=== PATIENT | female | born 1995 | race Caucasian/White ===

== ENCOUNTER 2023-08-02 13:52 | Inpatient (IN) | payer OTHER, SELFPAY ==
[2023-08-02] VITALS (29 sets, daily range): BP systolic 77–116; BP diastolic 42–74; BMI 24.0
[2023-08-02 09:54] LABS: % Basophils 0.7 % (0-2); % Eosinophils 0.8 % (0-6); % Immature Granulocytes 0.3 % (0-0.5); % Lymphocytes 13.3 % (20.5-51.1); % Monocytes 6.9 % (1.7-9.3); Absolute Basophils 0.1 10^3/uL (0-0.2); Absolute Eosinophils 0.1 10^3/uL (0-0.7); Absolute Monocytes 0.5 10^3/uL (0.1-0.6); Absolute Neutrophils 5.8 10^3/uL (1.4-6.5); Hemoglobin 13.9 g/dL (12.0-16.0); Mean Corp Hgb Conc. 35.6 g/dL (33.0-37.0); Mean Corpuscular Hgb 31.8 pg (27.0-31.0); Mean Corpuscular Volume 89.2 fL (81.0-99.0); Mean Platelet Volume 12.3 fL (7.4-10.4); Nucleated Red Blood Cells % 0 %; Platelet Count 207 10^3/uL (130-400); Red Blood Cell Count 4.37 10^6/uL (4.20-5.40); Red Cell Dist. Width 12.9 % (11.5-14.5); White Blood Cell Count 7.4 10^3/uL (4.8-10.8)
--- NOTE | 2023-08-02 10:28 | ED.GENMED ---
History of Present Illness
General
Chief Complaint: Seizure
Source: patient and family
Exam Limitations: other (Downs Syndrome)
Time Seen by Provider: 08/02/23 08:44
Travel History
Have you had any contact with someone who has COVID-19?: No
Do you have any symptoms of coronavirus? Fever > 100 degrees, chills, cough, shortness of breath, sore throat, loss of taste or smell, muscle aches, or headache?: No
History of Present Illness
History of Present Illness:
28-year-old female with history of Down syndrome, pseudoseizures, tetralogy of Fallot, AL L in remission who presents with family was concerned about increasing events of pseudoseizures. Parent states that in the past she was diagnosed with
pseudoseizure after having an EEG that was unremarkable. For some time she has been doing well but over the last week has had increasing events. The patient has had several events in the evenings. Family states she is fatigued afterwards and
sometimes the next day very tired. They also feel like she has just been more weak over the last week due to these events. Her doctor started her on daily clonazepam and again she has been treated with medications for pseudoseizures. Family
presents a video that shows right eye deviation with facial twitching that does appear to be a seizure.
Past History
Past History
ED Past Medical History: Other (Tetralogy of Fallot, 'pseudoseizure', Down syndrome, AL L)
ED Past Surgical History: Cardiac (Tetralogy of Fallot repair)
Phy Exam
Physical Exam
Physical Exam:
CONSTITUTIONAL Patient alert and oriented to person. Well-appearing. Vital signs reviewed.
HEAD atraumatic, normocephalic.
EYES eyelids normal to inspection, Pupils equally round and reactive to light, Extraocular muscles intact, Conjunctiva normal, Sclera normal.
NECK normal range of motion, Trachea midline, no jugular venous distention.
RESPIRATORY CHEST No respiratory distress noted, Chest expansion equal, Bilateral breath sounds clear.
CARDIOVASCULAR regular rate and rhythm, loud systolic murmur noted.
UPPER EXTREMITY range of motion normal, no cyanosis, no edema.
LOWER EXTREMITY range of motion normal, no cyanosis, no edema.
NEURO Speech normal,Cranial Nerves intact to screening exam. Question very slight left-sided weakness when compared to the right. Is able to hold all 4 extremities against gravity.
SKIN skin warm, dry, and normal in color.
Course
Orders/Labs/Results
Orders:
Orders
08/02/23 09:42
Complete Blood Count/With Diff Urgent
08/02/23 10:16
Comprehensive Metabolic Panel Urgent
Creatine Phosphokinase Urgent
08/02/23 10:20
Lacosamide [Vimpat] 400 mg IV NOW STA
Lorazepam [Ativan] 1 mg IV NOW ONE
08/02/23 10:28
0.9% Sodium Chloride [Nss (Preservative Free)] 0.5 ml IV NOW STA
08/02/23 11:00
Flush (0.9% Sodium Chloride) [Flush (Nss)] See Dose Instructions IV PER PROTOCOL
08/02/23 20:00
Lacosamide [Vimpat] 100 mg IV Q12H
Abnormal Lab Results
08/02/23
09:42
MCH 31.8 H pg
(27.0-31.0)
MPV 12.3 H fL
(7.4-10.4)
Absolute Lymphs (auto) 1.0 L 10^3/uL
(1.2-3.4)
Neutrophils % 78.0 H %
(42.2-75.2)
Lymphocytes % 13.3 L %
(20.5-51.1)
08/02/23 09:42
Vital Signs
Initial and Last Documented VS:
Initial Vital Signs
Temp Pulse Resp BP Pulse Ox
98.0 F 101 16 100/59 98
08/02/23 08:36 08/02/23 08:36 08/02/23 08:36 08/02/23 08:36 08/02/23 08:36
Last Documented Vital Signs
Temp Pulse Resp BP Pulse Ox
98.0 F 105 25 111/56 100
08/02/23 08:36 08/02/23 09:45 08/02/23 09:45 08/02/23 09:30 08/02/23 09:45
MDM/Problems Addressed
MDM/Problems Addressed:
Seizures, chronic Down syndrome, chronic congenital heart defect (repaired), history of AL L with whole body radiation
*Pulse Oximetry
Patient hypoxic: no
*Guitar Teacher Interpretation
Rate: tachycardiac
Interpretation: normal
Rhythm: sinus
*Critical Care Note
Total Time (30-74mins, 75-104mins- exclusive of procedures): 30 minutes
Data Reviewed
Source: patient and family
Prescriptions/Medications Considered But Not Given:
Consider Keppra but neurology to treat with antiepileptics
Patient Management
Discussion with other providers: Hospitalist and Coater (Case discussed with neurology)
Escalation/DeEscalation of care consider admission/obs:
Patient has been diagnosed with pseudoseizures. However video of the events an event here in the emergency department are consistent with seizures. Seen by neurology at bedside who was able to witness the event. Ativan and Vimpat were ordered by
neurology. Neurology recommends admission.
ED Attending Note
-
Portions of this chart may have been created with voice recognition software.� Occasional wrong word or��sound alike� substitutions may have occurred due to the inherent limitations of voice recognition software.
Discharge Plan
Departure
Patient Disposition: Admit
Date of Disposition: 08/02/23
Time of Disposition: 10:29
Admit to: Telemetry
Presentation/result/management discussed w/ accepting MD/DO: Hospitalist
Discharge Problem:
Seizure, Down syndrome
Prescriptions:
No Action
clonazepam 0.5 mg Tablet
0.5 mg PO DAILY
levothyroxine 75 mcg Tablet
75 mcg PO DAILY
lisinopril 10 mg Tablet
10 mg PO DAILY
CombiPatch 0.05-0.14 mg/24 hr Patch Semiweekly
1 patch TRANSDERMAL ONCE
buspirone 15 mg Tablet
15 mg PO BID
aripiprazole 2 mg Tablet
4 mg PO DAILY
Interventions
Interventions:
*Risk Screen - Suicide Last Done: 08/02/23 08:55
*General Assessment Last Done: 08/02/23 08:55
*Neglect/Abuse Screening Last Done: 08/02/23 08:55
ED- Fall Risk Assessment Last Done: 08/02/23 09:37
*ED COVID-19 Vaccine History Last Done: 08/02/23 08:36
ED- Cardiac Assessment Last Done: 08/02/23 09:37
ED- Neurological Assessment Last Done: 08/02/23 09:37
ED- Pulmonary Assessment Last Done: 08/02/23 09:37
Discharge Date and Time
Print Language: GREENLANDIC
[2023-08-02] MEDS: NSS (PRESERVATIVE FREE) 0.5 ML IV (10:32)
[2023-08-02] MEDS: ATIVAN 1 MG IV (10:32)
[2023-08-02] MEDS: VIMPAT 400 MG IV (10:57)
[2023-08-02 11:38] LABS: ALT (SGPT) 48 U/L (0-35); AST (SGOT) 83 U/L (14-36); Albumin 5.2 g/dl (3.5-5.0); Alkaline Phosphatase 90 U/L (38-126); Blood Urea Nitrogen 14 mg/dl (7-17); Calcium 10.4 mg/dl (8.4-10.2); Carbon Dioxide 19 mmol/L (22-30); Chloride 107 mmol/L (98-107); Creatine Phosphokinase 740 U/L (30-135); Estimated Creatinine Clearance 68 ml/min; Glucose 93 mg/dl (70-99); Potassium 4.2 mmol/L (3.5-5.1); Sodium 142 mmol/L (135-145); Total Protein 9.1 g/dl (6.3-8.2); eGFR > 60.00
--- NOTE | 2023-08-02 12:39 | HPS.HSE ---
Family Physician
-
Family Physician: David Vann
Chief Complaint
-
seizure
History of Present Illness
Ms. Gabriela Small is a 28 yo woman with hx Down Syndrome, pseudoseizures, Tetralogy of Fallot s/p repair, AL in remission who presents to the ER with witnessed seizure at home.
Patient sedated on exam, given ativan in ER.
History obtained from father at bedside. Patient has a history of diagnosed pseudoseizures that were short lasting with quick recovery. Over past week increased seizure activity at home with prolonged weakness following.
No fevers/chills. No vomiting. No complaint of new pains. No rash or LE swelling.
Medical History
Past Medical History
Past Medical History: Reports Other ( Down Syndrome, pseudoseizures, Tetralogy of Fallot s/p repair, AL in remission)
Past Surgical History: Reports Cardiac and Other
Social History
Alcohol: None
Drug: None
Family History
Family History: Not pertinent
Allergies / Home Medications
Allergies reflects when Allergies were last updated in [employer].
Home Medications with original date entered in [employer]
Allergy/Medication List:
Allergies
Allergy/AdvReac Type Severity Reaction Status Date / Time
lactose Allergy Nausea / Verified 08/02/23 08:39
Vomiting
scopolamine Allergy Unknown Verified 08/02/23 08:39
seafood Allergy Unknown Uncoded 08/02/23 08:39
Home Medications
L.acidophilus,rhamnosus-B.breve-S.thermophilus 3 billion cell chew tab 1 tab PO NOON 08/02/23
acetaminophen 325 mg/10.15 mL oral solution 0 mg PO Q4HPRN PRN mild pain 08/02/23
aripiprazole 2 mg tablet 4 mg PO QPM 08/02/23
buspirone 15 mg tablet 15 mg PO BID 08/02/23
clonazepam 0.5 mg tablet 0.5 mg PO HS 08/02/23
estradiol 0.05 mg-norethindrone 0.14 mg/24 hr semiwkly transderm patch (CombiPatch) 1 patch transdermal TUFR 08/02/23
levothyroxine 75 mcg tablet 75 mcg PO DAILY 08/02/23
lisinopril 10 mg tablet 10 mg PO QPM 08/02/23
pediatric multivitamin no.49 (Flintstones Gummies chewable tablet) 1 tab PO BID@1200,1700 08/02/23
Review of Systems
-
History Source: Patient
A 12 point ROS was completed and negative except as noted: Yes
Physical Exam
Vital Signs
Vital Signs
Temp Pulse Resp BP Pulse Ox
98.0 F 105 25 111/56 100
08/02/23 08:36 08/02/23 09:45 08/02/23 09:45 08/02/23 09:30 08/02/23 09:45
Physical Exam
General: Other (sedated s/p ativan )
HEENT: PERRLA
Respiratory: Other (referred upper airway noises)
Cardiac: S1/S2 and Regular Rhythm
GI: Soft and Non Tender
Musculoskeletal: No Edema
Skin: Warm and Dry; No Rash
Neuro: Sedated
Psych: Calm
Laboratory Results
-
08/02/23 09:42
08/02/23 10:53
Laboratory Results
Total Bilirubin 1.0 mg/dl (0.2-1.3) 08/02/23 10:53
AST 83 U/L (14-36) H 08/02/23 10:53
ALT 48 U/L (0-35) H 08/02/23 10:53
Alkaline Phosphatase 90 U/L (38-126) 08/02/23 10:53
Data Reviewed
-
Diagnostic Radiology: Report Reviewed by me
Lab Data: Labs Reviewed by me
Impression/Plan
-
Ms. Gabriela Small is a 28 yo woman with hx Down Syndrome, pseudoseizures, Tetralogy of Fallot s/p repair, AL in remission who presents to the ER with witnessed seizure at home.
Triage VS: T 98, P 101, RR 16, BP 100/59, SpO2 98%
LABS: WBC 7.4, Hg 13.9, PLT 207, Na 142, K+ 4.2, CO2 19, BUN 14, Cr 0.8, Glucose 93, Ca 10.4, AST 83, ALT 48, CK 740
In the ER patient was given IV Lorazepam and Vimpat
Seizure
-family hesitant on head CT given radiation exposure (and had a lot of radiation in treatment for AL).
-will see if MRI can be done now while very sedated post ativan. spoke to MRI team and will try
-admit to IMU
-seizure precautions
-continue IV Vimpact started by Dr. Du
-appreciate neurology consult
Hypotension
-post ativan/sedation
-1L IVF now
-maintenance IVF
Hs Pseudoseizures
Down Syndrome
Tetralogy of Fallot s/p Repair
Anxiety
-METAL BONDER Aripiprazole, Buspirone, Clonazepam to start tomorrow evening (hold for sedation)
Essential Hypertension
-hold METAL BONDER Lisinopril
Hypothyroidism - METAL BONDER synthroid
DVT PPx SCD
FULL ISAAC
76 minutes spent on patient evaluation, medical decision making, coordination of care
[2023-08-02] MEDS: NSS 500 IV (13:14)
--- NOTE | 2023-08-02 13:16 | CON.NEURO4 ---
Consultation - Neurology 4
-
CONSULTING PHYSICIAN: Asaf Du
REFERRING PHYSICIAN: ER
DICTATED BY: Asaf Du
DATE/TIME OF REQUEST: 08/02/23
DATE/TIME OF CONSULTATION: 08/02/23
Reason for Consultation: Suspicion for epileptic seizures
History of Present Illness:
The patient is a 28-year-old woman with a past ministry of Down syndrome, tetralogy of Fallot status postrepair, AL L presented to hospital because of increasing frequency of abnormal movements concerning for epileptic versus psychogenic seizure.
Patient reports that these episodes have been happening much more frequently since approximately last 07/24. She could have multiple episodes and these were generally at night but in the past couple of days these have been happening during
the day as well. Previous to this the patient has not had any abnormal spells in several months since she had received a diagnosis of psychogenic nonepileptic seizures in the past having had a EEG in the past that was normal.
She had an event that seems similar to the ones at home happening after IVs placed, parents feel that some of these events can be brought on by stressors.
She does see a psychiatrist and had been started on a low-dose alprazolam 0.5 mg recently. Sees a neurologist generally once a year. Patient with no recent heart issues.
Parents have seen that she has not been eating as much recently and seems to have a generalized weakness.
Patient's mother demonstrated a video to me where he she had obvious epileptic seizure activity with right eye and head deviation along with tonic extension of the right arm. She showed another separate video with bilateral tonic extension loss of
consciousness and eyes open consistent with a generalized epileptic seizure.
Patient had a spontaneous occurrence of epileptic seizure in front of me while in the room beginning with right eye and head deviation with small amount of right arm clonic movements within secondary generalization and then spontaneous stopping
after approximately 2 minutes total of seizure activity.
Past Medical History: Down syndrome, non epileptic psychogenic seizures, ALL, tetralogy of Fallot
Surgical History: Repair of tetralogy of Fallot
Family History: Non-contributory
Social History: Lives with parents
Review of Symptoms:
Patient denies any fever, headache, chest pain, shortness of breath, GI or symptoms.
Physical Exam:
Middle-aged young woman with Down syndrome in no distress pleasant awake and alert and interactive. No signs of head or neck trauma no obvious tongue bleeding eyes are clear, heart rate regular breathing unlabored abdomen is obese soft nontender no
lower extremity edema seen.
Neurologic Examination:
Patient is awake and alert and interactive, . she does interact with the examiner and will obey simple commands, tracks the examiner through the room.
Cranial nerves shows symmetric face and no dysarthria pupils are 3 mm equal round react to light bilaterally, extraocular movements are full, no ptosis, tongue is midline, smile symmetric
Motor examination shows generalized weakness 4/5 shoulder abduction and arm flexion bilaterally, hip flexion 4/5 bilaterally withdrawal to noxious stimulation symmetric manner of the legs
Reflexes 2+ symemtric biceps triceps patella and achilles
Impressions
1. Patiently definitely have epileptic seizures more recently. Generally manifesting with right-sided eye and head deviation along with right arm myoclonic movements and tonic extension suggestive of a focal seizure source in the left
hemisphere. This would represent a new diagnosis of epilepsy, most likely focal with secondary generalized seizures, currently uncontrolled, without status epilepticus
2. Not uncommon for patients to have both epileptic and nonepileptic psychogenic seizures
3. Down's syndrome
4. History of ALL
5. History Tetralogy of fallot with repair
Recommendations:
1. Given loading dose of lacosamide 400 mg IV as well as 1 mg IV lorazepam in the ER
2. Continue Lacosamide 100 mg q12hr IV, can transition to 100 mg q12hr PO when able
3. Patient sedated post lorazepam, EEG at this point going to very low yield and will be affected by lorazepam sedative effects, and would not affect decision making that patient requires alf seizure medication. Eventual EEG would be
recommended but brain imaging I feel would be more important
4. Discussed the reasoning and decision for obtaining brain imaging with the patient's parents. They are concerned the potential for radiation from CT head given the patient's previous exposures to radiation treatments. The patient would be
unlikely in my opinion to tolerate the 45 to 60 minutes necessary of holding still for a brain MRI and would most likely require procedural sedation which does involve risks. Discussed my thoughts and recommendation that the risks of radiation in
obtaining a CT head are in general ferry terminal supervisor risks that are low compared to going without any brain imaging in this patient. They will consider. Additionally we will pursue the avenue of obtaining MRI brain at the current time taking advantage of
the patient's sedation after Lorazepam given for seizure.
Discussed patient care with: Patient's parents, Dr Brock, Dr Austin
[2023-08-02] MEDS: D5LR 1000 IV (16:33)
[2023-08-02] MEDS: ABILIFY PO (17:05)
--- NOTE | 2023-08-02 17:05 | PTCARENOTE ---
Pt received from ED on stretcher. Drowsy and lethargic/ postictal. PO medications held d/t lethargy. Seizure pads placed on bed; no seizure activity noted at this time. IVF infusing as ordered. Family at bedside, updated on plan of care. Bed alarm
in place for safety.
--- NOTE | 2023-08-02 18:16 | PTCARENOTE ---
Pt now hypotensive in the 70-80's systolic. Spoke with Dr. Austin, verbal order received for NS bolus over one hour to be hung. IVF infusing as ordered.
[2023-08-02] MEDS: NSS 1000 IV ×2 (18:42→20:12)
[2023-08-02] MEDS: VIMPAT 100 MG IV (20:12)
[2023-08-02] MEDS: BUSPAR PO (20:17)
[2023-08-03] VITALS (20 sets, daily range): BP systolic 83–124; BP diastolic 55–86; PULSE 74–96; O2SAT 100
--- NOTE | 2023-08-03 00:28 | PTCARENOTE ---
pt with low BP's since start of the shift, SBP 70s-80s. pt post-ictal, drowsy but follows commands. father at bedside. notified covering ELECTRICAL MAINTENANCE SUPERVISOR of low BP's. another IV bolus hung. BP's still soft. father did tell this RN that her normal BP is SBP
90s. pt too drowsy to take HS meds. PW in place. pt with some periods of apnea while sleeping, oxygen as low as 60s but goes back up to 90s after a few seconds. pt placed on 2L NC for sleep at this time. care ongoing.
[2023-08-03] MEDS: D5LR 1000 IV ×2 (05:44→23:04)
[2023-08-03] MEDS: SYNTHROID 75 MCG PO (05:44)
--- NOTE | 2023-08-03 06:22 | PTCARENOTE ---
pt more awake this AM- able to verbalize needing to go to the bathroom. pt a heavy complete assist to BSC- unable to use PW. pt father picked patient up entirely to place on BSC. pt able to take medications this AM crushed in applesauce. father
remains at bedside currently. seizure pads on bed. care ongoing.
--- NOTE | 2023-08-03 07:55 | W.PN.HOSP.TC ---
Addendum entered and electronically signed by Aicha Austin MD 08/03/23 09:03:
DVT PPx - start Lovenox
Original Note:
Today's Communication/Plan
-
see plan
Assessment / Plan
Assessment / Plan
Ms. Gabriela Small is a 28 yo woman with hx Down Syndrome, pseudoseizures, Tetralogy of Fallot s/p repair, AL in remission who presents to the ER with witnessed seizure at home.
In the ER patient was given IV Lorazepam and Vimpat
BRAIN MRI
IMPRESSION:
1. 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
2. Moderate to severe white matter disease in the frontal and parietal lobes.
3. Moderate diffuse dilatation of the ventricular system.
4. Mild diffuse cerebral and cerebellar volume loss.
Seizure
-s/p MRI with results above, likely all related to Down Syndrome
-admitted to IMU
-seizure precautions
-continue IV Vimpact started by Dr. Du
-appreciate neurology
-stop evening Clonazepam (was only started Saturday evening)
-appreciate neurology consult
-PT/OT/ST; IVF while NPO (OK for apple sauce, handled well this morning)
Hypotension
-post ativan/sedation
responded to fluids
-now normotensive
-hold Lisinopril
Hs Pseudoseizures
Down Syndrome
Tetralogy of Fallot s/p Repair
Anxiety
-NURSE COMPANION Aripiprazole, Buspirone
Essential Hypertension
-hold NURSE COMPANION Lisinopril
Hypothyroidism - NURSE COMPANION synthroid
DVT PPx SCD
FULL ISAAC
51 minutes spent on patient evaluation, medical decision making, coordination of care
Anticipated Discharge: 24 - 48 hours
Subjective/Interval History
-
Date of Service: August 03, 2023
patient is more awake and alert today
not quite at baseline per father
she is weaker than baseline (at home she walks with a gait belt)
Objective Data
-
Labs:
Laboratory Results
08/03/23
06:00
WBC Pending
Hgb Pending
Hct Pending
Plt Count Pending
Sodium Pending
Potassium Pending
Chloride Pending
Carbon Dioxide Pending
BUN Pending
Creatinine Pending
Glucose Pending
Calcium Pending
Vital Signs:
Vital Signs
Temp Pulse Resp BP Pulse Ox
98.0 F 87 15 124/64 100
08/03/23 02:44 08/03/23 06:00 08/03/23 06:00 08/03/23 06:00 08/03/23 05:00
I&O
08/02/23 08/03/23 08/04/23
06:59 06:59 06:59
Intake Total 960 / 960
Output Total 250 / 250
Balance 710 / 710
Review of Systems
-
History Source: Patient
All other systems: Reviewed and negative
Physical Exam
-
General: No Apparent Distress and Other (awake, alert, down syndrome, soft voice)
HEENT: PERRLA
Respiratory: Clear to Auscultation; Negative Wheezes
Cardiac: Regular Rhythm and S1/S2
GI: Soft and Nontender
Musculoskeletal: No Edema
Skin: Warm and Dry; Negative Rash
Neuro: AO x 3 and Other (can wiggle toes weakly when asked )
Psych: Calm
Data Reviewed
-
Diagnostic Radiology: Report Reviewed by me
Labs: Labs Reviewed by me
[2023-08-03] MEDS: VIMPAT 100 MG IV ×2 (09:47→19:27)
[2023-08-03] MEDS: BUSPAR 15 MG PO ×2 (09:47→19:27)
[2023-08-03 10:31] LABS: % Basophils 0.3 % (0-2); % Immature Granulocytes 0.2 % (0-0.5); % Lymphocytes 7.7 % (20.5-51.1); % Monocytes 5.3 % (1.7-9.3); % Neutrophils 85.5 % (42.2-75.2); Absolute Eosinophils 0.1 10^3/uL (0-0.7); Absolute Lymphocytes 0.7 10^3/uL (1.2-3.4); Absolute Monocytes 0.5 10^3/uL (0.1-0.6); Absolute Neutrophils 7.6 10^3/uL (1.4-6.5); Hematocrit 37.3 % (37.0-47.0); Hemoglobin 13.1 g/dL (12.0-16.0); Mean Corp Hgb Conc. 35.1 g/dL (33.0-37.0); Mean Corpuscular Hgb 31.6 pg (27.0-31.0); Mean Corpuscular Volume 90.1 fL (81.0-99.0); Mean Platelet Volume 12.1 fL (7.4-10.4); Nucleated Red Blood Cells % 0 %; Platelet Count 154 10^3/uL (130-400); Red Blood Cell Count 4.14 10^6/uL (4.20-5.40); Red Cell Dist. Width 12.8 % (11.5-14.5); White Blood Cell Count 8.9 10^3/uL (4.8-10.8)
[2023-08-03] MEDS: LOVENOX 40 MG SC (10:31)
[2023-08-03 10:49] LABS: Blood Urea Nitrogen 8 mg/dl (7-17); Calcium 9.2 mg/dl (8.4-10.2); Carbon Dioxide 23 mmol/L (22-30); Chloride 109 mmol/L (98-107); Creatine Phosphokinase 1243 U/L (30-135); Estimated Creatinine Clearance 77 ml/min; Glucose 99 mg/dl (70-99); Magnesium 1.7 mg/dl (1.6-2.3); Potassium 3.9 mmol/L (3.5-5.1); Sodium 138 mmol/L (135-145); eGFR > 60.00
--- NOTE | 2023-08-03 11:12 | PTCARENOTE ---
Pt rec'd this am from manufacturing shift supervisor RN, pt is awake and responsive, tearful at times. Pt's father at bedside, plan of care discussed. Pt was grossly incontinent of urine this am. Plan also discussed with MD, will await speech therapy to evaluate pt
prior to ordering diet, in the meantime, ok to give meds crushed in applesauce. Pt extremely difficult stick -IV site was infiltrated, new site placed, am labs drawn by rock climbing instructor after multiple attempts by several different techs/RNs. Vitals WNL,
Bps much better this am. Currently 99/. Continuing to closely monitor.
--- NOTE | 2023-08-03 12:32 | PTOTSP ---
SPEECH THERAPY SWALLOW EVALUATION:
Patient exhibits clinical signs of oropharyngeal dysphagia, likely acutely related to seizure. Patient with predisposing dysphagia risk factors of Down Syndrome and seizures. Patient remains at high risk for aspiration and related complications
given lethargy and confusion. Recommend NPO at this time; Consider necessary medications crushed in puree at MD discretion with RN supervision, only when awake/alert with aspiration precautions in place. Speech therapy to follow and re-assess in 24
hours. Discussed with patient, mother, and RN.
RECOMMEND:
1) temporary NPO; consider temporary non-oral nutrition/hydration
2) necessary medications crushed in puree at MD discretion with RN supervision, only when awake/alert with aspiration precautions in place
3) Speech therapy to follow and re-assess in 24 hours
[2023-08-03] MEDS: COLACE PO ×2 (13:37→19:27)
[2023-08-03] MEDS: SENOKOT 8.59999999999999964 MG PO ×2 (13:37→19:27)
[2023-08-03] MEDS: ABILIFY 4 MG PO (16:54)
[2023-08-03] MEDS: TYLENOL ORAL SOLUTION 650 MG PO (16:55)
--- NOTE | 2023-08-03 17:12 | W.PN.NEURO.1 ---
Addendum entered and electronically signed by Amparo Kruger, 08/04/23 12:47:
Placing psychiatry consult; mom is concerned that Buspar is affecting seizure/could be provoking them based on when it was started.
Original Note:
Today's Communication / Plan
-
monitor mental status
continue Vimpat
EEG
Neuro Assessment/Plan
Assessment
28 year-old female with Down syndrome, h/o ALL and Tetralogy of Fallot s/p repair events concerning for focal seizure with secondary generalization consisting of right-sided eye and head deviation along with right arm myoclonic movements and tonic
extension. 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
Given loading dose of lacosamide 400 mg IV as well as 1 mg IV lorazepam in the ER. Has had no further events since admission.
Plan
Recommendations:
-continue Vimpat 100mg IV q12
-continue seizure precautions and neurochecks
-reviewed MRI brain results with her parents
-reviewed possible diagnosis of epilepsy plus PNES; discussed recommendation for eventual evaluation at an epilepsy center for possible EMU admission to better characterize her events
-continue to monitor mental status; will eventually need an EEG
Will c/t follow.
Subjective/Objective
Subjective Data
Date of Service: August 03, 2023
no further episodes of seizure like activity; patient remains lethargic compared to her baseline
Objective Data
Vital Signs
Temp Pulse Resp BP Pulse Ox
98.9 F 84 20 104/64 96
08/03/23 15:35 08/03/23 16:00 08/03/23 16:00 08/03/23 16:00 08/03/23 16:00
Lab Results
08/03/23 10:24
08/03/23 10:24
Sodium 138 mmol/L (135-145) 08/03/23 10:24
Potassium 3.9 mmol/L (3.5-5.1) 08/03/23 10:24
BUN 8 mg/dl (7-17) 08/03/23 10:24
Glucose 99 mg/dl (70-99) 08/03/23 10:24
Calcium 9.2 mg/dl (8.4-10.2) 08/03/23 10:24
Patient Allergies
Fish Containing Products Allergy (Verified 08/02/23 15:59)
SEAFOOD
lactose Allergy (Verified 08/02/23 08:39)
Nausea / Vomiting
scopolamine Allergy (Verified 08/02/23 08:39)
Unknown
Physical Exam
Extended Neurological Exam
Attention Span & Concentration: Lethargic and Other (followed some basic commands with encouragement from her parents)
Involuntary Movement: None
Speech: Mute
Cranial Nerve II: Left Eye: Pupillary Reactivity Unremarkable and Pupillary Size Unremarkable
Cranial Nerve II: Right Eye: Pupillary Reactivity Unremarkable and Pupillary Size Unremarkable
Cranial Nerve VII: Facial Symmetry: Normal Facial Symmetry
Muscle Strength, Overall: Other (at least 3/5 diffusely)
Deep Tendon Reflexes: Unremarkable Throughout
Babinski Sign: Absent Bilaterally
--- NOTE | 2023-08-03 18:05 | PTCARENOTE ---
Pt has remained more alert today, however continues with rigidity in 4 limbs, trunk control was minimal when attempting to sit pt on side of bed. Pt's parents remain at bedside. Emotional support provided. Pt displayed wet voice with med
administration, occ cough noted. Oral completed with suction toothbrush. Pt saturating diapers, does not like purewick. Pericare provided frequently. Continuing to monitor.
[2023-08-04] VITALS (17 sets, daily range): BP systolic 85–135; BP diastolic 48–102
--- NOTE | 2023-08-04 01:25 | PTCARENOTE ---
Pt received from previous shift in bed. AAOx1-2, slow speech, nods head approp, tearful at times. Telemetry = SR (murmur auscultated). Full physical assessment documented (refer to worklist). Pt incontinent of urine, does attempt to use bedpan.
Crushed meds in applesauce, pt gags at time when swallowing. Turned an positioned for comfort. Dad at bedside staying over. #24 RAC with D5LR infusing at 80mL/hr without complicaton. Call almanza within reach. Plan of care ongoing.
[2023-08-04 04:33] LABS: Blood Urea Nitrogen 5 mg/dl (7-17); Calcium 9.1 mg/dl (8.4-10.2); Carbon Dioxide 25 mmol/L (22-30); Chloride 110 mmol/L (98-107); Estimated Creatinine Clearance 77 ml/min; Glucose 110 mg/dl (70-99); Magnesium 1.6 mg/dl (1.6-2.3); Potassium 3.5 mmol/L (3.5-5.1); Sodium 141 mmol/L (135-145); eGFR > 60.00
[2023-08-04] MEDS: SYNTHROID 75 MCG PO (05:42)
--- NOTE | 2023-08-04 06:17 | PTCARENOTE ---
Pt crying out intermittently t/o shift. Difficulty having BM. Passed small hard brown stool and then smears. Assisted with mouthcare. Father at bedside. Plan of care ongoing.
--- NOTE | 2023-08-04 08:11 | W.PN.HOSP.TC ---
Today's Communication/Plan
-
IV Vimpat
PT/OT/ST
IVF while NPO
bowel regimen
eventual EEG
appreciate neurology
Assessment / Plan
Assessment / Plan
Ms. Gabriela Small is a 28 yo woman with hx Down Syndrome, pseudoseizures, Tetralogy of Fallot s/p repair, AL in remission who presents to the ER with increased frequency seizures at home. Witnessed seizure in the ER.
In the ER patient was given IV Lorazepam and Vimpat
BRAIN MRI
IMPRESSION:
1. 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
2. Moderate to severe white matter disease in the frontal and parietal lobes.
3. Moderate diffuse dilatation of the ventricular system.
4. Mild diffuse cerebral and cerebellar volume loss.
Seizure
-s/p MRI with results above, likely all related to Down Syndrome
-appreciate neurology
-admitted to IMU
-seizure precautions
-continue IV Vimpact started by Dr. Du
-appreciate neurology
-stop evening Clonazepam (was only started Saturday evening)
-appreciate neurology consult
-PT/OT/ST; IVF while NPO
-eventual EEG
Hypotension
-post ativan/sedation
responded to fluids
-now normotensive
-hold Lisinopril - consider holding at DC with persistent soft BP
Hs Pseudoseizures
Down Syndrome
Tetralogy of Fallot s/p Repair
Anxiety
-POURING CRANE OPERATOR Aripiprazole, Buspirone
Essential Hypertension
-hold POURING CRANE OPERATOR Lisinopril
Hypothyroidism - POURING CRANE OPERATOR synthroid
Constipation
-colace, senna BID; PRN oral dulcolax. miralax when can drink. avoid rectal administration, too difficult per patient
DVT PPx lovenox subQ
FULL ISAAC
51 minutes spent on patient evaluation, medical decision making, coordination of care
Anticipated Discharge: 24 - 48 hours
Subjective/Interval History
-
Date of Service: August 04, 2023
she is constipated
no seizures overnight
more alert
Objective Data
-
Labs:
Laboratory Results
08/04/23
03:46
Sodium 141
Potassium 3.5
Chloride 110 H
Carbon Dioxide 25
BUN 5 L
Creatinine 0.7
Glucose 110 H
Calcium 9.1
Vital Signs:
Vital Signs
Temp Pulse Resp BP Pulse Ox
99.5 F 101 22 122/102 95
08/04/23 03:44 08/04/23 06:00 08/04/23 06:00 08/04/23 06:00 08/04/23 06:00
I&O
08/03/23 08/04/23 08/05/23
06:59 06:59 06:59
Intake Total 960 / 960 1760 / 1760
Output Total 250 / 250
Balance 710 / 710 1760 / 1760
Review of Systems
-
History Source: Patient
All other systems: Reviewed and negative
Physical Exam
-
General: No Apparent Distress and Other (awake, alert, down syndrome, soft voice)
HEENT: PERRLA
Respiratory: Clear to Auscultation; Negative Wheezes
Cardiac: Regular Rhythm and S1/S2
GI: Soft and Nontender
Musculoskeletal: No Edema
Skin: Warm and Dry; Negative Rash
Neuro: Awake, Alert and Other (can wiggle toes weakly when asked, answers intermittent questions )
Psych: Calm
Data Reviewed
-
Diagnostic Radiology: Report Reviewed by me
Labs: Labs Reviewed by me
[2023-08-04] MEDS: COLACE PO (08:47)
[2023-08-04 08:50] LABS: Creatine Phosphokinase 599 U/L (30-135)
[2023-08-04] MEDS: VIMPAT 100 MG IV ×2 (09:30→20:09)
[2023-08-04] MEDS: SENOKOT 8.59999999999999964 MG PO ×2 (09:31→20:08)
[2023-08-04] MEDS: BUSPAR 15 MG PO ×2 (09:31→20:08)
[2023-08-04] MEDS: KCL 270 MEQ IV (09:31)
[2023-08-04] MEDS: D5LR 1000 IV ×2 (11:16→21:08)
--- NOTE | 2023-08-04 12:38 | W.PN.NEURO.1 ---
Today's Communication / Plan
-
continue vimpat
swallow evaluation
eeg tomorrow
Neuro Assessment/Plan
Assessment
28 year-old female with Down syndrome, h/o ALL and Tetralogy of Fallot s/p repair events concerning for focal seizure with secondary generalization consisting of right-sided eye and head deviation along with right arm myoclonic movements and tonic
extension. 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
Given loading dose of lacosamide 400 mg IV as well as 1 mg IV lorazepam in the ER. Has had no further events since admission.
Plan
Recommendations:
-continue Vimpat 100mg IV q12
-continue seizure precautions and neurochecks
-reviewed MRI brain results with her parents yesterday
-reviewed possible diagnosis of epilepsy plus PNES; discussed recommendation for eventual evaluation at an epilepsy center for possible EMU admission to better characterize her events again today with her mother
-continue to monitor mental status; will eventually need an EEG--can be done routinely tomorrow given significant improvement in mental status
-swallow evaluation
Will c/t follow.
Subjective/Objective
Subjective Data
Date of Service: August 04, 2023
mental status significantly improved today; near back to baseline per her mother
no further episodes of seizure like activity
Objective Data
Vital Signs
Temp Pulse Resp BP Pulse Ox
99.3 F 84 27 106/76 95
08/04/23 10:54 08/04/23 10:00 08/04/23 10:00 08/04/23 10:00 08/04/23 12:17
Lab Results
08/03/23 10:24
08/04/23 03:46
Sodium 141 mmol/L (135-145) 08/04/23 03:46
Potassium 3.5 mmol/L (3.5-5.1) 08/04/23 03:46
BUN 5 mg/dl (7-17) L 08/04/23 03:46
Glucose 110 mg/dl (70-99) H 08/04/23 03:46
Calcium 9.1 mg/dl (8.4-10.2) 08/04/23 03:46
Patient Allergies
Fish Containing Products Allergy (Verified 08/02/23 15:59)
SEAFOOD
lactose Allergy (Verified 08/02/23 08:39)
Nausea / Vomiting
scopolamine Allergy (Verified 08/02/23 08:39)
Unknown
Physical Exam
Extended Neurological Exam
Mood & Affect: Mood Unremarkable and Affect Unremarkable
Attention Span & Concentration: Lethargic (did follow multiple basic commands for me)
Memory: Unable to Assess
Tremor: Hand Tremor Absent and Head Tremor Absent
Involuntary Movement: None
Speech: Other (mute for me but has been talking to mother spontaneously intermittently, mental status is near her baseline)
Cranial Nerve II: Left Eye: Pupillary Reactivity Unremarkable and Pupillary Size Unremarkable
Cranial Nerve II: Right Eye: Pupillary Reactivity Unremarkable and Pupillary Size Unremarkable
Cranial Nerves III, IV, : Extraocular Movement: Extraocular Movement Full in all Directions
Cranial Nerve VII: Facial Symmetry: Normal Facial Symmetry
Cranial Nerve VIII: Hearing: Unremarkable Hearing to Normal Conversational Volume
Muscle Strength, Overall: Other (at least 4/5 diffusely)
Deep Tendon Reflexes: Unremarkable Throughout
[2023-08-04] MEDS: DULCOLAX 10 MG RECTAL (14:03)
[2023-08-04] MEDS: MAGNESIUM SULFATE 50 IV (14:50)
--- NOTE | 2023-08-04 16:05 | PTCARENOTE ---
Pt with moderate sized soft bowel movement after suppository. Rosaline care completed.
[2023-08-04] MEDS: LOVENOX 40 MG SC (18:06)
[2023-08-04] MEDS: ABILIFY 4 MG PO (18:06)
[2023-08-04] MEDS: NSS 500 IV (18:23)
--- NOTE | 2023-08-04 18:29 | PTCARENOTE ---
Pt hypotensive with SBP in the 80's. Dr. Austin notified via TT. Order for IVF bolus received; hung as ordered.
[2023-08-04] MEDS: COLACE 100 MG PO (20:08)
[2023-08-04] MEDS: TYLENOL ORAL SOLUTION 650 MG PO (20:08)
[2023-08-05] VITALS (17 sets, daily range): BP systolic 80–118; BP diastolic 39–75; PULSE 75; O2SAT 97
[2023-08-05] MEDS: NSS 500 IV (00:24)
--- NOTE | 2023-08-05 01:37 | PTCARENOTE ---
Pt having hypotension, BP 80/44. night Plant Hr Manager made aware, 500ml bolus ordered. Pt needing restart of IV X3.
--- NOTE | 2023-08-05 08:40 | W.PN.NEURO.1 ---
Today's Communication / Plan
-
Continue lacosamide 100 mg every 12 hours IV
Reevaluate swallow function with improving mental status and wakefulness
-When able to take PO move to to 100 mg lacosamide p.o. every 12 hours
Routine EEG
Discussed seizure precautions and epilepsy care with her father
Acceptable to continue Ariprazole at same dose given I feel minimal role in triggering epileptic seizures, they had begun after the dose increase recently. Acceptable to continue Buspirone
Would remain off Clonazepam
Discussed eventual comprehensive epilepsy evaluation, can help in instances of patients who have both epileptic and non-epileptic psychogenic seizures to capture and characterize events which helps with recognizing each event appropriately
Neuro Assessment/Plan
Assessment
28 year-old female with Down syndrome, h/o ALL and Tetralogy of Fallot s/p repair events concerning for focal seizure with secondary generalization consisting of right-sided eye and head deviation along with right arm myoclonic movements and tonic
extension. 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
Given loading dose of lacosamide 400 mg IV as well as 1 mg IV lorazepam in the ER. Has had no further events since admission. Tolerating 100 mg Lacosamide well.
MRI brain with expected changes of atrophy, white matter disease likely related to Down's syndrome disposition towards brain atrophy, no masses or edema, no infarcts.
Subjective/Objective
Subjective Data
Date of Service: August 05, 2023
No acute events, no further seizure events since 08/01, she is improving, more interactive
Objective Data
Vital Signs
Temp Pulse Resp BP Pulse Ox
98.4 F 74 20 109/60 98
08/05/23 07:20 08/05/23 06:00 08/05/23 06:00 08/05/23 06:00 08/05/23 08:00
Lab Results
08/03/23 10:24
Sodium 141 mmol/L (135-145) 08/04/23 03:46
Potassium 3.5 mmol/L (3.5-5.1) 08/04/23 03:46
BUN 5 mg/dl (7-17) L 08/04/23 03:46
Glucose 110 mg/dl (70-99) H 08/04/23 03:46
Calcium 9.1 mg/dl (8.4-10.2) 08/04/23 03:46
Patient Allergies
Fish Containing Products Allergy (Verified 08/02/23 15:59)
SEAFOOD
lactose Allergy (Verified 08/02/23 08:39)
Nausea / Vomiting
scopolamine Allergy (Verified 08/02/23 08:39)
Unknown
Review of Systems
-
Unable to obtain full review of systems at this time due to: Other (Intellectual disability minimally verbal)
Physical Exam
-
General: Other (Downs' syndrome young woman getting EEG, pleasant, cooperative and tracks examiner)
Eyes: No Ptosis
HEENT: Normocephalic
Neck: No Bruits Bilaterally
Respiratory: Clear to Auscultation
Cardiac: Regular Rhythm
GI: Normal Bowel Sounds, Soft and Non-tender
Skin: Warm and Dry
Extremities: No Cyanosis
Psych: Negative Agitated
Extended Neurological Exam
Attention Span & Concentration: Other (Awake, alert, tracks, responds a little says no pain, pleasant)
Memory: Unable to Assess
Tremor: Hand Tremor Absent
Involuntary Movement: None
Speech: Negative Receptive Aphasia
Cranial Nerve II: Left Eye: Pupillary Reactivity Unremarkable and Pupillary Size Unremarkable
Cranial Nerve II: Right Eye: Pupillary Reactivity Unremarkable and Pupillary Size Unremarkable
Cranial Nerves III, IV, : Extraocular Movement: Extraocular Movement Full in all Directions
Muscle Strength, Overall: Other (4/5 shoulder abduction and hip flexion no asymmetry, normal muscle bulk and tone)
Muscle Bulk & Tone: Bulk Unremarkable and Tone Unremarkable
--- NOTE | 2023-08-05 08:42 | PTCARENOTE ---
pt awake oriented to self. garbled slow speech. increased oral secretions. room air breath sounds diminished. pt father at bedside. he is concerned about overstimulating the pt will too many tests today and asking for the video swallow to be
pushed to tomorrow. pt now getting eeg. done. asked if we can see how she responds to EEG first and make a decision about any further testing after. he agreed. warehouse shift supervisor rn stated she coughs and drools with taking pills. father states this is
her baseline. explained to him the risks of aspiration and he stated he understood.
--- NOTE | 2023-08-05 09:49 | W.PN.HOSP.TC ---
Today's Communication/Plan
-
Appreciate neurology
Continue PO diet as recommended by speech
If PO diet is reliable, then will switch to PO antiepileptic medication
Assessment / Plan
Assessment / Plan
Physical Exam
General: No Apparent Distress and Other (awake, alert, down syndrome, soft voice)
HEENT: Normocephalic
Respiratory: Clear to Auscultation; Negative Wheezes
Cardiac: Regular Rhythm and S1/S2
GI: Soft and Nontender
Musculoskeletal: No Edema
Skin: Warm and Dry; Negative Rash
Neuro: Awake, Alert and Other (can wiggle toes weakly when asked, answers intermittent questions )
Psych: Calm
Assessment/Plan
Ms. Gabriela Small is a 28 yo woman with hx Down Syndrome, pseudoseizures, Tetralogy of Fallot s/p repair, AL in remission who presents to the ER with increased frequency seizures at home. Witnessed seizure in the ER.
In the ER patient was given IV Lorazepam and Vimpat
BRAIN MRI
IMPRESSION:
1. 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
2. Moderate to severe white matter disease in the frontal and parietal lobes.
3. Moderate diffuse dilatation of the ventricular system.
4. Mild diffuse cerebral and cerebellar volume loss.
Seizure
-s/p MRI with results above, likely all related to Down Syndrome
-appreciate neurology
-admitted to IMU
-seizure precautions
-Continue lacosamide 100 mg every 12 hours IV but when able to take PO move to to 100 mg lacosamide p.o. every 12 hours
-appreciate neurology
-stop evening Clonazepam (was only started Saturday evening)
-Acceptable to continue Ariprazole at same dose and acceptable to continue Buspiron, as per neurology -- but taper these medications as per psychiatry
-appreciate neurology consult
-PT/OT/ST; IVF while NPO
-eventual EEG
Hypotension
-post ativan/sedation
responded to fluids
-now normotensive
-hold Lisinopril - consider holding at DC with persistent soft BP
Hs Pseudoseizures
Down Syndrome
Tetralogy of Fallot s/p Repair
Anxiety
-KNUCKLE BENDER Aripiprazole, Buspirone
Essential Hypertension
-hold KNUCKLE BENDER Lisinopril
Hypothyroidism - KNUCKLE BENDER synthroid -- consider inpatient vs. outpatient check of TSH and Free T4 since patient is taking estrogen derivatives which may diminish the therapeutic effect of Thyroid Products
Constipation
-colace, senna BID; PRN oral dulcolax. miralax when can drink. avoid rectal administration, too difficult per patient
DVT PPx lovenox subQ
Diet: IDDSI Level 6 (Soft/Bite-Sized) and Thin liquids -- after discussion on 08/05/23 with Speech, no need for a VSE at this time
FULL CODE
Anticipated Discharge: 24 - 48 hours
Subjective/Interval History
-
Date of Service: August 05, 2023
Patient was seen and examined. She denied any new significant symptoms or complaints.
Objective Data
-
Labs:
Laboratory Results
08/05/23
06:00
Sodium Pending
Potassium Pending
Chloride Pending
Carbon Dioxide Pending
BUN Pending
Creatinine Pending
Glucose Pending
Calcium Pending
Vital Signs:
Vital Signs
Temp Pulse Resp BP Pulse Ox
98.4 F 69 22 111/63 99
08/05/23 07:20 08/05/23 08:00 08/05/23 08:00 08/05/23 08:00 08/05/23 08:42
I&O
08/04/23 08/05/23 08/06/23
06:59 06:59 06:59
Intake Total 1760 / 1760 1570 / 1570
Balance 1759 157 / 157
[2023-08-05] MEDS: BUSPAR 15 MG PO (10:01)
[2023-08-05] MEDS: VIMPAT 100 MG IV ×2 (10:01→21:24)
[2023-08-05] MEDS: SYNTHROID 75 MCG PO (10:01)
[2023-08-05] MEDS: COLACE PO ×2 (10:01→21:18)
[2023-08-05] MEDS: SENOKOT PO ×2 (10:02→21:18)
[2023-08-05] MEDS: D5LR 1000 IV ×2 (10:14→22:45)
[2023-08-05 10:43] LABS: Blood Urea Nitrogen 3 mg/dl (7-17); Carbon Dioxide 27 mmol/L (22-30); Chloride 110 mmol/L (98-107); Estimated Creatinine Clearance 77 ml/min; Glucose 101 mg/dl (70-99); Sodium 140 mmol/L (135-145); eGFR > 60.00
--- NOTE | 2023-08-05 11:50 | PTOTSP ---
Speech Language Pathology
Pt seen for dysphagia tx. Plan was for VSE this morning, but family requested to hold, as they didn't want her to have too much testing in 1 day, and she had EEG earlier. They were also hopeful that she would do better on bedside assessment as she
is more alert this date, and they would prefer to not have study completed if possible.
Pt awake and alert upon arrival. Mother and caregiver present. Seen with sips of juice from juice box, applesauce from home, and ellis cracker. Large bites of cracker taken at times. Single dry cough noted x2 during P.O. trials, but do not
suspect aspiration.
Mother denied any hx of PNA. No current chest imaging or respiratory concerns with normal WBC. Given improvement in alertness, will recommend diet and defer VSE given family preference and good tolerance of trials this date.
Recommend:
(1) IDDSI Level 6 Solids (Soft/Bite-Sized) and Thin Liquids
(2) Aspiration precautions: full supervision, sit upright, slow rate, ensure oral cavity clear post P.O. intake
(3) Meds crushed in puree
(4) Please cancel VSE order
(5) ELECTRICAL TECHNICIAN to continue to follow
--- NOTE | 2023-08-05 11:51 | EEG.RPT ---
Electroencephalogram Report
Recording
Date of EE07/29/23
Type of EEG: Routine
Length of EEG recordin hour 2 minutes
Patient Status: Inpatient
Recording Conditions: Awake and Drowsy
Report
GREATER THAN 1 HOUR EEG REPORT
GREATER THAN 1 HOUR EEG INTERPRETATION:
Unremarkable EEG for age
CLINICAL CORRELATION:
A normal EEG does not rule out a diagnosis of epilepsy.� If clinical suspicion for seizure persists, repeated studies or prolonged recording may be warranted.
Clinical correlation is advised.
METHODS:
A 21 channel digitized electroencephalogram (EEG) was performed in the Clinical Neurophysiology Laboratory. The 10/20 international system of electrode placement was used with ECG and lateral/vertical eye movements recorded. Study lasted 1 hour 2
minutes.
ELECTROENCEPHALOGRAPHER IMPRESSION(S):
Quality of study
Fair, prominent muscle and movement
Background
Mixed medium amplitude of mostly alpha activity, beta maximum
Normal posterior dominant rhythm of 10 hz seen which attenuates with eye opening
No significant background asymmetry
Sleep
Drowsiness present
No stage 2 sleep architecture seen
Photic Stimulation
Not performed
Hyperventilation
Not performed
ECG
Normal sinus rhythm
Abnormalities
No significant abnormalities seen, no seizures or interictal epileptiform discharges
--- NOTE | 2023-08-05 14:05 | CS.PSYCHR ---
Consult Summary - Psychiatry
-
Pt is 28 yo female with history of Down's syndrome, pseudoseizures, Tetralogy of Fallot s/p repair, ALL in remission, who presented to ED with reportedly witnessed seizure at home. Pt was given Ativan in ER, evaluated by Neurology and started on
Vimpat. Pt seen with mother, who provided history. Pt sees a Psychiatrist, Dr Boateng, who increased Abilify for depression one week ago from 2 mg to 4 mg daily. Pt is also on Buspar 15 mg BID. Mother states pt started having possible seizure
activity at nighttime in 2018 after she was started on Buspar for anxiety. Pt reportedly has fear of falling, has had gait issues. Pt has ID supports coordinator, who was also present, reported pt has improved over the past few years with
gradually getting out more, doing limited activities with her.
Psych Hx: anxiety, depression with crying spells, Rx Abilify and Buspar as above. No history of inpatient tx
Pt has ID supports coordinator through [employer], has Behavior therapist with a different agency per mother
SH: lives with family
MSE: alert, making eye contact, in upright bed position, calm and cooperative. Limited answers, smiling, with no active complaints. No signs of psychosis or depression. Insight limited
Imp: Unspecified anxiety. Hx of dysthymia, appears stable
Rec: Will taper Abilify back to 2 mg daily, since pt unlikely to benefit from increase to 4 mg and this does have some effect on the seizure threshold
Will also taper Buspar to 10 mg BID, given mother's concern about affecting seizure risk, and unclear benefit
Outpatient psychiatric follow-up, either returning to current psychiatrist, or to [employer] [facility], when medically cleared
Will follow
--- NOTE | 2023-08-05 14:05 | CM ---
Patient with Hx Down syndrome with Dx seizure. Room air. Receiving IVF, IV Vimpat. EEG today. ST for dysphagia. PT & OT recommend skilled rehab.
Met with patient, mother Ce and caregiver Mickey;
the patient resides with her parents in a 2 story house with no MAIA and elevator.
She is assisted with ADLs and is ambulatory with use of gait belt .
DME - gait belt, transport chair
Prior [facility] VN 2011
PCP - David Vann
Pharmacy - [facility] - [place]
Both mother & father are caregivers, and patient has Mickey, caregiver through [employer] 16-20 hrs/week. Ce says that they have requested increased caregiver hours but were told additional caregiver was not available.
Discussed patient's current mobility per PT/OT. The mother says her mobility is usually better than her current mobility and she is hoping patient will improve prior to d/c.
Offered VN and mother chose [facility].
Referral to [facility].
Plan continue to follow patient's progress with PT/OT.
Plan home with [facility].
--- NOTE | 2023-08-05 15:24 | VNURNOTE ---
Home Health Liaison met with patient and mom at 1500 to discuss [facility] nurse/therapy, visits, schedule and homebound status. Patient's mom is agreeable and understands that visits at home will be 2-3 x per week to assess and teach medical management.
[facility] brochure provided with contact information. Patient's mom is aware that [facility] will contact them for start of care in 1-2 days after discharge from .
[facility] referral completed in [facility].
[2023-08-05] MEDS: ABILIFY 2 MG PO (16:56)
[2023-08-05] MEDS: LOVENOX 40 MG SC (16:56)
[2023-08-05] MEDS: BUSPAR 10 MG PO (21:24)
[2023-08-06] VITALS (16 sets, daily range): BP systolic 90–135; BP diastolic 40–97; PULSE 88; BMI 25.9
[2023-08-06] MEDS: SYNTHROID 75 MCG PO (05:47)
--- NOTE | 2023-08-06 06:47 | W.PN.NEURO.1 ---
Today's Communication / Plan
-
-Continue Lacosamide 100 mg PO BID, move to PO
-Acceptable to continue aripiprazole and buspirone
-Would remain off clonazepam
-Minimize sedating medications
-Monitor clinically for seizures
-Educated and discussed with her father on epilepsy care moving forward, what to do in case of seizures, when to call 911, follow up neurology care, eventual opinion by comprehensive epilepsy center
-Encourage PO intake, ambulation and more activity
-Outpatient neurology follow up with our office 4 weeks after discharge
Will follow on as needed basis call with questions and concerns
Neuro Assessment/Plan
Assessment
28 year-old female with Down syndrome, h/o ALL and Tetralogy of Fallot s/p repair events concerning for focal seizure with secondary generalization consisting of right-sided eye and head deviation along with right arm myoclonic movements and tonic
extension. 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
Given loading dose of lacosamide 400 mg IV as well as 1 mg IV lorazepam in the ER. Has had no further events since admission. Tolerating 100 mg Lacosamide BID well.
Most likely a left sided seizure focus in temporal or frontal lobe given right gaze deviation and versive head turn the the right, right arm extension with seizure observed by myself in the ER as well as parent's video
EEG unremarkable, common for patient's with epilepsy to have normal EEG
MRI brain with expected changes of atrophy, white matter disease likely related to Down's syndrome disposition towards brain atrophy, no masses or edema, no infarcts.
Subjective/Objective
Subjective Data
Date of Service: August 06, 2023
No acute events, more awake and interactive and her normal self, eager to eat
Objective Data
Vital Signs
Temp Pulse Resp BP Pulse Ox
97.7 F 88 21 125/90 98
08/06/23 04:16 08/06/23 06:00 08/06/23 06:00 08/06/23 06:00 08/06/23 06:00
Lab Results
08/03/23 10:24
08/05/23 10:19
Sodium 140 mmol/L (135-145) 08/05/23 10:19
Potassium 4.0 mmol/L (3.5-5.1) 08/05/23 10:19
BUN 3 mg/dl (7-17) L 08/05/23 10:19
Glucose 101 mg/dl (70-99) H 08/05/23 10:19
Calcium 9.0 mg/dl (8.4-10.2) 08/05/23 10:19
Patient Allergies
Fish Containing Products Allergy (Verified 08/02/23 15:59)
SEAFOOD
scopolamine Allergy (Verified 08/02/23 08:39)
Unknown
Review of Systems
-
Unable to obtain full review of systems at this time due to: Other (Intellectual disability, minimal verbal for me)
Physical Exam
-
General: Other (Pleasant young woman with Down's syndrome, wide awake, interactive no distress)
Eyes: No Ptosis
HEENT: Normocephalic
Neck: No Bruits Bilaterally
Respiratory: No Dyspnea
Cardiac: No Murmur
GI: Soft and Non-tender
Skin: Warm and Dry
Psych: Negative Agitated
Extended Neurological Exam
Attention Span & Concentration: Awake, Alert, Interactive and Other (Gives thumbs up in response to me giving her a thumbs up)
Speech: Negative Expressive Aphasia or Receptive Aphasia
Cranial Nerve II: Left Eye: Pupillary Reactivity Unremarkable and Pupillary Size Unremarkable
Cranial Nerve II: Right Eye: Pupillary Reactivity Unremarkable and Pupillary Size Unremarkable
Cranial Nerves III, IV, : Extraocular Movement: Extraocular Movement Full in all Directions
Muscle Strength, Overall: Other (No motor asymmetry, at least 4/5 throughout for shoulder abduction arm flexion hip flexion bilaterally)
Data Reviewed
-
CT Head: Report Reviewed and Image Reviewed
MRI Head: Report Reviewed and Image Reviewed
EEG: Report Reviewed
[2023-08-06] MEDS: VIMPAT 100 MG PO ×2 (08:12→20:14)
[2023-08-06] MEDS: BUSPAR 10 MG PO ×2 (08:12→20:14)
[2023-08-06] MEDS: COLACE PO ×2 (08:33→20:12)
[2023-08-06] MEDS: SENOKOT PO ×2 (08:33→20:13)
--- NOTE | 2023-08-06 13:12 | W.PN.UPDATE ---
Update Note
Progress Note Update
Pt seen, alert/awake, smiling, in no distress. Pt's mother and ID supports coordinator from [facility] present, state pt improving toward usual baseline, though not ambulating yet. Pt starting eating. No change in mood, no notable anxiety, continues to
improve, tolerating medication adjustments. Neurology suspects seizure with Rt side temporal or frontal focus, given witnessed symptoms. Pt placed on Vimpat, will follow up with outpatient Neurology.
Imp: Unspecified anxiety. Hx of dysthymia, appears stable
Down's syndrome, with intellectual disability
Rec: Would continue Abilify- tapered back to 2 mg daily, and Buspar 10 mg BID
Outpatient psychiatric med mgt when medically stabilized
--- NOTE | 2023-08-06 14:18 | W.PN.HOSP.TC ---
Today's Communication/Plan
-
Seizure medication changed to oral today -- monitor on oral medication for another 12 to 24 hours
Continue IDDSI diet
Assessment / Plan
Assessment / Plan
Physical Exam
General: No Apparent Distress and Other (awake, alert, down syndrome, soft voice)
HEENT: Normocephalic
Respiratory: Clear to Auscultation Bilaterally; Negative Wheezes
Cardiac: Regular Rhythm and S1/S2
GI: Soft and Nontender
Musculoskeletal: No Edema
Skin: Warm and Dry; Negative Rash
Neuro: Awake, Alert and Other (can wiggle toes weakly when asked, answers intermittent questions )
Psych: Calm
Assessment/Plan
Ms. Gabriela Small is a 28 yo woman with hx Down Syndrome, pseudoseizures, Tetralogy of Fallot s/p repair, AL in remission who presents to the ER with increased frequency seizures at home. Witnessed seizure in the ER.
In the ER patient was given IV Lorazepam and Vimpat
BRAIN MRI
IMPRESSION:
1. 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
2. Moderate to severe white matter disease in the frontal and parietal lobes.
3. Moderate diffuse dilatation of the ventricular system.
4. Mild diffuse cerebral and cerebellar volume loss.
Seizure
-s/p MRI with results above, likely all related to Down Syndrome
-appreciate neurology
-seizure precautions
-Switched lacosamide 100 mg every 12 hours IV to 100 mg lacosamide p.o. every 12 hours --> appreciate neurology
-appreciate neurology
-stop evening Clonazepam (was only started Saturday evening)
-Acceptable to continue Ariprazole at same dose and acceptable to continue Buspiron, as per neurology -- but taper these medications as per psychiatry
-appreciate neurology consult
-PT/OT/ST; IVF while NPO
-eventual EEG
-Encourage PO intake, ambulation and more activity
-Outpatient neurology follow up with our office 4 weeks after discharge
Hypotension
-post ativan/sedation
responded to fluids
-now normotensive
-hold Lisinopril - consider holding at DC with persistent soft BP
History of Pseudoseizures
Down Syndrome
Tetralogy of Fallot s/p Repair
Anxiety
-MATERIAL CONTROL ANALYST Aripiprazole, Buspirone
Essential Hypertension
-hold MATERIAL CONTROL ANALYST Lisinopril
Hypothyroidism - continue MATERIAL CONTROL ANALYST synthroid -- consider inpatient vs. outpatient check of TSH and Free T4 since patient is taking estrogen derivatives which may diminish the therapeutic effect of Thyroid Products
Constipation
-colace, senna BID; PRN oral dulcolax. miralax when can drink. avoid rectal administration, too difficult per patient
DVT PPx lovenox subQ
Diet: IDDSI Level 6 (Soft/Bite-Sized) and Thin liquids -- after discussion on 08/05/23 with Speech, no need for a VSE at this time
FULL CODE
Anticipated Discharge: Within 24 hours
Subjective/Interval History
-
Date of Service: August 06, 2023
Patient was seen and examined. She denied any new symptoms or complaints.
Objective Data
-
Vital Signs:
Vital Signs
Temp Pulse Resp BP Pulse Ox
98.5 F 73 16 110/62 97
08/06/23 12:00 08/06/23 12:00 08/06/23 12:00 08/06/23 12:00 08/06/23 12:00
I&O
08/05/23 08/06/23 08/07/23
06:59 06:59 06:59
Intake Total 1570 / 1570
Balance 1570 / 1570
[2023-08-06] MEDS: ABILIFY 2 MG PO (17:36)
[2023-08-06] MEDS: LOVENOX 40 MG SC (17:36)
--- NOTE | 2023-08-06 18:34 | PTCARENOTE ---
combi patch unable to find. mother bringing another in the morning. Pharmacy aware.
[2023-08-07] VITALS (7 sets, daily range): BP systolic 90–105; BP diastolic 43–69; PULSE 77; O2SAT 93
--- NOTE | 2023-08-07 03:58 | DOWNTIME ---
There was a [employer] Client Ux Design Manager Downtime on 08/07/2023 from 0100 to 08/07/2023 at 0337. Downtime documentation of patient's care, including medication administrations, has been reconciled in the electronic record per guidelines. Refer to the
patient's paper chart under the miscellaneous tab to see printed paper medication records and downtime forms.
[2023-08-07] MEDS: SYNTHROID 75 MCG PO (05:48)
[2023-08-07 06:59] LABS: Hematocrit 35.6 % (37.0-47.0); Hemoglobin 12.6 g/dL (12.0-16.0); Mean Corp Hgb Conc. 35.4 g/dL (33.0-37.0); Mean Corpuscular Hgb 31.3 pg (27.0-31.0); Mean Corpuscular Volume 88.3 fL (81.0-99.0); Mean Platelet Volume 13.2 fL (7.4-10.4); Platelet Count 186 10^3/uL (130-400); Red Blood Cell Count 4.03 10^6/uL (4.20-5.40); Red Cell Dist. Width 12.6 % (11.5-14.5); White Blood Cell Count 5.2 10^3/uL (4.8-10.8)
[2023-08-07 07:30] LABS: ALT (SGPT) 56 U/L (0-35); AST (SGOT) 55 U/L (14-36); Albumin 3.7 g/dl (3.5-5.0); Alkaline Phosphatase 78 U/L (38-126); Blood Urea Nitrogen 11 mg/dl (7-17); Calcium 9.6 mg/dl (8.4-10.2); Carbon Dioxide 26 mmol/L (22-30); Chloride 105 mmol/L (98-107); Creatine Phosphokinase 111 U/L (30-135); Estimated Creatinine Clearance 78 ml/min; Glucose 90 mg/dl (70-99); Magnesium 1.9 mg/dl (1.6-2.3); Potassium 4.5 mmol/L (3.5-5.1); Sodium 138 mmol/L (135-145); Total Bilirubin 0.5 mg/dl (0.2-1.3); Total Protein 6.8 g/dl (6.3-8.2); eGFR > 60.00
[2023-08-07] MEDS: VIMPAT 100 MG PO ×2 (10:00→20:38)
[2023-08-07] MEDS: BUSPAR 10 MG PO ×2 (10:01→20:38)
[2023-08-07] MEDS: SENOKOT 8.59999999999999964 MG PO (10:01)
[2023-08-07] MEDS: COLACE PO ×2 (10:01→20:38)
--- NOTE | 2023-08-07 12:00 | W.PN.UPDATE ---
Update Note
Progress Note Update
patient seen chart reviewed. mother at bedside. mary was quiet but pleasantly smiling. mother asked a lot of ?. she remains concerned that buspar contributed to the sz and she is not sure it helps and is truly worth the risk. she reports
mary has periods where she is anxious and the stress debilitates her. mary does have a lot of support. she is in physical therapy...mom says her balance is not great and there is risk of falling which unnerves mary. we talked about
various balance exercises patient could do which would help. if mom is anxious about the buspar she can dc it over the next week or so especially if she feels it is not helpful. would check in w mom tomorrow. i was going to sign off but mom asked
that i return.
--- NOTE | 2023-08-07 14:03 | CM ---
Reviewed the chart notes and spoke with the patient and her mother at the bedside. Mother has interest in acute rehab if the patient would qualify, otherwise is in agreement with home with VN/PT/OT. Physiatry consult pending. CM continues to be
available to patient/family and is monitoring medical plan for needs at discharge.
Plan: Discharge to acute rehab vs home with VN.
--- NOTE | 2023-08-07 14:18 | W.PN.HOSP.TC ---
Today's Communication/Plan
-
Patient's father requested monitoring for 1 more day, probable discharge to acute rehab vs. home tomorrow
Assessment / Plan
Assessment / Plan
Physical Exam
General: No Apparent Distress and Other (awake, alert, down syndrome, soft voice)
HEENT: Normocephalic
Respiratory: Clear to Auscultation Bilaterally; Negative Wheezes
Cardiac: Regular Rhythm and S1/S2
GI: Soft and Nontender
Musculoskeletal: No Edema
Skin: Warm and Dry; Negative Rash
Neuro: Awake, Alert and Other (answers intermittent questions)
Psych: Calm
Assessment/Plan
Ms. Gabriela Small is a 28 yo woman with hx Down Syndrome, pseudoseizures, Tetralogy of Fallot s/p repair, AL in remission who presents to the ER with increased frequency seizures at home. Witnessed seizure in the ER.
In the ER patient was given IV Lorazepam and Vimpat
BRAIN MRI
IMPRESSION:
1. 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
2. Moderate to severe white matter disease in the frontal and parietal lobes.
3. Moderate diffuse dilatation of the ventricular system.
4. Mild diffuse cerebral and cerebellar volume loss.
Seizure
-s/p MRI with results above, likely all related to Down Syndrome
-appreciate neurology
-seizure precautions
-Switched lacosamide 100 mg every 12 hours IV to 100 mg lacosamide p.o. every 12 hours --> appreciate neurology
-Appreciate neurology
-Stop evening Clonazepam (was only started Saturday evening)
-Acceptable to continue Ariprazole and Buspiron, as per neurology -- but taper these medications as per psychiatry
-Appreciate neurology consult
-PT/OT/ST
-eventual EEG
-Encourage PO intake, ambulation and more activity
-Outpatient neurology follow up with our office 4 weeks after discharge
Hypotension
-post ativan/sedation
responded to fluids
-now normotensive with intermittent low SBPs
-hold Lisinopril - consider holding at DC with persistent soft BP
History of Pseudoseizures
Down Syndrome
Tetralogy of Fallot s/p Repair
Anxiety
-FINISHING AND SHIPPING SUPERVISOR Aripiprazole, Buspirone
Essential Hypertension
-hold FINISHING AND SHIPPING SUPERVISOR Lisinopril
Hypothyroidism - continue FINISHING AND SHIPPING SUPERVISOR synthroid -- consider inpatient vs. outpatient check of TSH and Free T4 since patient is taking estrogen derivatives which may diminish the therapeutic effect of Thyroid Products
Constipation
-colace, senna BID; PRN oral dulcolax. miralax when can drink. avoid rectal administration, too difficult per patient
DVT PPx lovenox subQ
Diet: IDDSI Level 6 (Soft/Bite-Sized) and Thin liquids -- after discussion on 08/05/23 with Speech, no need for a VSE at this time
FULL CODE
Anticipated Discharge: 24 - 48 hours
Subjective/Interval History
-
Date of Service: August 07, 2023
Patient was seen and examined. She denied any new symptoms or complaints. Her father was present in the patient's room and mentioned that patient has been improving.
Objective Data
-
Labs:
Laboratory Results
08/07/23
06:31
WBC 5.2
Hgb 12.6
Hct 35.6 L
Plt Count 186 D
Sodium 138
Potassium 4.5
Chloride 105
Carbon Dioxide 26
BUN 11
Creatinine 0.8
Glucose 90
Calcium 9.6
Total Bilirubin 0.5
AST 55 H
ALT 56 H
Alkaline Phosphatase 78
Vital Signs:
Vital Signs
Temp Pulse Resp BP Pulse Ox
98.9 F 82 14 105/69 96
08/07/23 11:15 08/07/23 11:15 08/07/23 11:15 08/07/23 11:15 08/07/23 11:15
I&O
08/06/23 08/07/23 08/08/23
06:59 06:59 06:59
Intake Total 680 / 680
Balance 680 / 680
[2023-08-07] MEDS: ABILIFY 2 MG PO (16:41)
[2023-08-07] MEDS: LOVENOX 40 MG SC (17:16)
--- NOTE | 2023-08-07 18:59 | CON.MR ---
Consultation
Consultation Request
Date/Time Consultation Performed: 08/07/2023, 1800
Performing Provider: Dr. Hernández
Reason for Consultation: Seizure
Medical History
-
Chief Complaint: Seizure
History of Present Illness:
I had the opportunity to see Gabriela Small in rehabilitation consultation today. This is a 28 year old female with history of Down syndrome, ALL in remission and tetralogy of fallot, hypothyroid, HTN with persistent seizure disorder was admitted
on 08/03/23 after witnessed seizure at home by family. In the ER patient was given IV Lorazepam and Vimpat. Did have hypotension post ativan and sedation and responded to fluids. MRI of the brain without any acute pathology, mild to moderate
bilateral periventricular leukomalacia in the centrum semiovale of both parietal lobes superior to the lateral ventricles. Also with moderate to severe white matter disease in the frontal and parietal lobes, moderate diffuse dilatation of the
ventricular system, mild diffuse cerebral and cerebellar volume loss.
Hospital course generally unremarkable. Was switched from IV seizure medications to PO and has been stable.
Patient seen at bedside this evening with father present in the room. No significant complaints by the patient. Father states she did get up today and walk with therapy. Required Mod A for transfer and min-mod A for ambulation with hand held
assist.
Lives with family in fully accessible home with an elevator, and no steps to enter. Normally ambulates with assistance of family and using a gait belt for stability but father denies any cane or walker.
Social History
Functional Level Premorbidity:
Assist at home with ambulation with gait belt, assist for ADL's. Has home health aide 5 days a week.
Current Funct Level: Ambulation, Transfer, UE/LE Dressing:
Mod A for ambulation and transfers today.
Allergies / Home Medications
Allergy/AdvReac Type Severity Reaction Status Date / Time
Fish Containing Products Allergy SEAFOOD Verified 08/02/23 15:59
scopolamine Allergy Unknown Verified 08/02/23 08:39
�Medication �Instructions �Recorded �Confirmed �Last Taken �Type
L.acidophilus,rhamnosus-B.breve-S.thermophilus 1 tab PO NOON 08/02/23 08/02/23 08/01/23 History
3 billion cell chew tab
acetaminophen 325 mg/10.15 mL oral 0 mg PO Q4HPRN PRN mild pain 08/02/23 08/02/23 3 Days Ago History
solution ~07/30/23
aripiprazole 2 mg tablet 4 mg PO QPM 08/02/23 08/02/23 08/01/23 History
buspirone 15 mg tablet 15 mg PO BID 08/02/23 08/02/23 08/02/23 History
clonazepam 0.5 mg tablet 0.5 mg PO HS 08/02/23 08/02/23 08/01/23 History
estradiol 0.05 mg-norethindrone 1 patch transdermal TUFR 08/02/23 08/02/23 08/02/23 History
0.14 mg/24 hr semiwkly transderm
patch (CombiPatch)
levothyroxine 75 mcg tablet 75 mcg PO DAILY 08/02/23 08/02/23 08/02/23 History
lisinopril 10 mg tablet 10 mg PO QPM 08/02/23 08/02/23 08/01/23 History
pediatric multivitamin no.49 1 tab PO BID@1200,1700 08/02/23 08/02/23 08/01/23 History
(Flintstones Gummies chewable
tablet)
Review Of Systems
-
Unable to obtain full review of systems at this time due to: Patient Non Verbal
Physical Exam
Active Medications
Generic Name Dose Route Start Last Admin
Trade Name Freq PRN Reason Stop Dose Admin
Acetaminophen 650 mg 08/02/23 16:14 08/04/23 20:08
Acetaminophen (Oral Solution) 650 Mg/20.3 Ml Cup PO 08/30/23 16:13 650 mg
Q4HPRN PRN Administration
mild pain
Acetaminophen 650 mg 08/02/23 15:49
Acetaminophen 650 Mg Rectal Suppository RECTAL 08/30/23 15:48
Q4HPRN PRN
mild pain/STREET/temp> 100.4F
Aripiprazole 2 mg 08/05/23 16:00 08/07/23 16:41
Aripiprazole 2 Mg Tablet PO 09/02/23 15:59 2 mg
DAILY@1600 ELLIOTT Administration
Buspirone HCl 10 mg 08/05/23 20:00 08/07/23 10:01
Buspirone 10 Mg Tablet PO 09/02/23 19:59 10 mg
BID ELLIOTT Administration
Docusate Sodium 100 mg 08/03/23 13:00 08/07/23 10:01
Docusate Sodium 100 Mg Capsule PO 08/31/23 12:59 Not Given
BID ELLIOTT
Enoxaparin Sodium 40 mg 08/04/23 18:00 08/07/23 17:16
Enoxaparin Sodium 40 Mg/0.4 Ml Syringe SC 09/01/23 17:59 40 mg
QPM ELLIOTT Administration
Lacosamide 100 mg 08/06/23 08:00 08/07/23 10:00
Lacosamide (Vimpat) 100 Mg Tablet PO 09/03/23 07:59 100 mg
BID ELLIOTT Administration
Levothyroxine Sodium 75 mcg 08/03/23 06:00 08/07/23 05:48
Levothyroxine 75 Mcg Tablet PO 08/31/23 05:59 75 mcg
DAILY @ 0600 ELLIOTT Administration
Mineral Oil 133 ml 08/04/23 12:59
Mineral Oil (Fleet) Enema 133 Ml (4.5 Oz) RECTAL 09/01/23 12:58
DAILYPRN PRN
constipation
Estradiol- 0 patch 08/06/23 16:00 08/06/23 18:48
Norethindrone Acet [ TRANSDERM 09/03/23 15:59 Not Given
Combipatch] 0.05-0. TuFr@1600 ELLIOTT
14 Mg/24 Hr Td Tufr
Polyethylene Glycol 17 grams 08/02/23 15:49
Polyethylene Glycol Powder 17 Grams Packet PO 08/30/23 15:48
DAILYPRN PRN
constipation
Sennosides 8.6 mg 08/03/23 13:00 08/07/23 10:01
Sennosides (Senokot) 8.6 Mg Tablet PO 08/31/23 12:59 8.6 mg
BID ELLIOTT Administration
Sodium Chloride 0 flush 08/02/23 11:00
Sodium Chloride 0.9% (Flush) Syringe IV 08/30/23 10:59
PER PROTOCOL ELLIOTT
Vital Signs
Temp Pulse Resp BP Pulse Ox
98.6 F 77 18 101/57 96
08/07/23 15:35 08/07/23 15:35 08/07/23 15:35 08/07/23 15:35 08/07/23 15:35
Height 4 ft 10 in
Actual Weight 56.2 kg
Body Mass Index (BMI) 25.9
Physical Exam
Physical Exam:
General Appearance/Observation: Lying comfortably in bed in no apparent distress. Small stature.
Pain/Comfort Assessment: Denies
Mood/Affect: Appropriate
Eyes: Conjunctiva/Lids: normal Pupils: pupils equal round and reactive to light and Accommodation
Ears/Nose/Throat: oral mucosa moist, throat clear. Lips/Teeth/Gums: normal
Neck: Slight webbed neck, no pain good AROM.
Cardiovascular: Heart: regular, no murmur
Pulses: dorsalis pedis 2+ bilaterally
Respiratory: Respiratory Effort/Chest Expansion: normal Auscultation: Clear to auscultation bilaterally
Gastrointestinal: abdomen not tender, no distension, normal abdominal bowel sounds
Extremities: Edema: None Cyanosis: None Trophic changes: None
Sensory:
Light touch: Seems intact bilaterally
Cerebellar: Dysmetria/Ataxia: No tremor, good coordination with AROM
Musculoskeletal:
Motor: Grossly normal in UE/LE. No asymmetry or weakness.
Tone: Normal in all extremities
Range of Motion: Passively within normal limits in all extremities
Lab Results
08/07/23 06:31
08/07/23 06:31
WBC 5.2 10^3/uL (4.8-10.8) 08/07/23 06:31
Hgb 12.6 g/dL (12.0-16.0) 08/07/23 06:31
Hct 35.6 % (37.0-47.0) L 08/07/23 06:31
MCV 88.3 fL (81.0-99.0) 08/07/23 06:31
Plt Count 186 10^3/uL (130-400) D 08/07/23 06:31
Sodium 138 mmol/L (135-145) 08/07/23 06:31
Potassium 4.5 mmol/L (3.5-5.1) 08/07/23 06:31
Chloride 105 mmol/L (98-107) 08/07/23 06:31
Carbon Dioxide 26 mmol/L (22-30) 08/07/23 06:31
BUN 11 mg/dl (7-17) 08/07/23 06:31
Creatinine 0.8 mg/dL (0.6-1.0) 08/07/23 06:31
eGFR > 60.00 08/07/23 06:31
Glucose 90 mg/dl (70-99) 08/07/23 06:31
Calcium 9.6 mg/dl (8.4-10.2) 08/07/23 06:31
Magnesium 1.9 mg/dl (1.6-2.3) 08/07/23 06:31
Total Bilirubin 0.5 mg/dl (0.2-1.3) 08/07/23 06:31
AST 55 U/L (14-36) H 08/07/23 06:31
ALT 56 U/L (0-35) H 08/07/23 06:31
Alkaline Phosphatase 78 U/L (38-126) 08/07/23 06:31
Total Protein 6.8 g/dl (6.3-8.2) 08/07/23 06:31
Albumin 3.7 g/dl (3.5-5.0) 08/07/23 06:31
Diagnostic Results
As per HPI.
Comorbidities / Impairment Group
Comorbidities:
Down syndrome
Impairment Group:
Seizure
Assessment / Plan
Plan
Assessment:
28 year old female with Down syndrome and seizure disorder with witnessed seizure.
PM&R Continue bedside PT/OT to increase mobility improve balance, coordination, endurance, strength, community reintegration, decreased burden of care on others and family education.
Seizures: Now on PO Vimpat. monitor seizures, seizure precautions
HTN: continue medications, monitor closely
Hypothyroidism: levothyroxine
Psych: Is currently on Abilify, buspirone. Monitor mood, adjust medications as needed.
Skin: monitor for pressure sores/rashes/lesions.
Pain: acetaminophen as needed.
DVT Prophylaxis: On lovenox Sq
Safety: Continue to reinforce assistance with all transfers.
Code Status: Full code
Dispo (date/plan/equipment needs): Home with family care. Social history reviewed.
Functional and Medical Goals: Modified Independent with ADL�s, ambulation, transfers
Summary
-
Things that must be addressed in Hospital prior to discharge:
1. Please continue bedside PT/OT.
2. Please give blood pressure parameters.
3. Please comment on dvt chemoprophylaxis restrictions.
Discharge Destination: Home
Summary of recommendations:
- Discharge Destination: Home with home PT/OT/Nursing
Will sign off, please re-consult if needed.
Thank you for allowing me to care for your patient. Please contact me with any questions or concerns.
Comments
-
This note was dictated using a voice recognition system. Please excuse any typographical errors from hand roller engraver. If you believe there are any discrepancies, please notify our office.
[2023-08-07] MEDS: SENOKOT PO (20:38)
[2023-08-08 03:33] VITALS: BP 91/51
[2023-08-08] MEDS: SYNTHROID 75 MCG PO (05:26)
[2023-08-08 07:35] VITALS: BP 93/55
[2023-08-08] MEDS: COLACE PO ×2 (10:42→19:45)
[2023-08-08] MEDS: SENOKOT PO ×2 (10:42→19:45)
[2023-08-08] MEDS: BUSPAR 10 MG PO ×2 (10:46→19:45)
[2023-08-08] MEDS: VIMPAT 100 MG PO ×2 (10:46→19:45)
--- NOTE | 2023-08-08 10:53 | CM ---
Reviewed the chart notes and spoke with the patient and her parents at the bedside. The patient was evaluated by physiatry and the recommendation was home with PT/OT. Referral updated for [facility] (PT/OT/ST). CM continues to be available to
patient/family and is monitoring medical plan for needs at discharge.
Plan: Discharge to home with VN services.
[2023-08-08 11:00] VITALS: BP 91/53
--- NOTE | 2023-08-08 11:17 | W.PN.UPDATE ---
Update Note
Progress Note Update
patient seen chart reviewed. father present. patient was quiet and calm. smiled frequently. gave me a thumbs up several times as i asked simple questions. father and mother are considering whether she should go to in pt rehab or come home for pt
ot services. a big factor would be whether they can stay the night w her. we talked about the plusses and minuses...in patient could be overwhelming given lack of familiarity and also the servere impairment of some of the patients she will see.
another option might be supplementing what the in home therapists do with videos or suggestions from the therapists as to what parents can do w mary in the off hours to augment what therapist is working on. no need to change psych meds she
seems to be doing well. psych will sign off
--- NOTE | 2023-08-08 14:01 | W.PN.HOSP.TC ---
Today's Communication/Plan
-
Continue inpatient PT/OT per family request
Goal discharge tomorrow to home vs. acute rehab
Assessment / Plan
Assessment / Plan
Physical Exam
General: No Apparent Distress and Other (awake, alert, down syndrome, soft voice)
HEENT: Normocephalic
Respiratory: Clear to Auscultation Bilaterally; Negative Wheezes
Cardiac: Regular Rhythm and S1/S2
GI: Soft and Nontender
Musculoskeletal: No Edema
Skin: Warm and Dry; Negative Rash
Neuro: Awake, Alert and Other (answers intermittent questions)
Psych: Calm
Assessment/Plan
Ms. Gabriela Small is a 28 yo woman with hx Down Syndrome, pseudoseizures, Tetralogy of Fallot s/p repair, AL in remission who presents to the ER with increased frequency seizures at home. Witnessed seizure in the ER.
In the ER patient was given IV Lorazepam and Vimpat
BRAIN MRI
IMPRESSION:
1. 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
2. Moderate to severe white matter disease in the frontal and parietal lobes.
3. Moderate diffuse dilatation of the ventricular system.
4. Mild diffuse cerebral and cerebellar volume loss.
Seizure
-s/p MRI with results above, likely all related to Down Syndrome
-appreciate neurology
-seizure precautions
-Switched lacosamide 100 mg every 12 hours IV to 100 mg lacosamide p.o. every 12 hours --> appreciate neurology
-Appreciate neurology
-Stopped evening Clonazepam (was only started Saturday evening)
-Acceptable to continue Ariprazole and Buspiron, as per neurology -- but taper these medications as per psychiatry
-Appreciate neurology consult
-PT/OT/ST
-EEG unremarkable
-Encourage PO intake, ambulation and more activity
-Outpatient neurology follow up with our office 4 weeks after discharge
Hypotension
-post ativan/sedation
responded to fluids
-now normotensive with intermittent low SBPs
-hold Lisinopril - consider holding at DC with persistent soft BP
History of Pseudoseizures
Down Syndrome
Tetralogy of Fallot s/p Repair
Anxiety
-SMALL ANIMAL CARETAKER Aripiprazole, Buspirone
Essential Hypertension
-hold SMALL ANIMAL CARETAKER Lisinopril
Hypothyroidism - continue SMALL ANIMAL CARETAKER synthroid -- consider inpatient vs. outpatient check of TSH and Free T4 since patient is taking estrogen derivatives which may diminish the therapeutic effect of Thyroid Products
Constipation
-colace, senna BID; PRN oral dulcolax. miralax when can drink. avoid rectal administration, too difficult per patient
DVT PPx lovenox subQ
Diet: IDDSI Level 6 (Soft/Bite-Sized) and Thin liquids -- after discussion on 08/05/23 with Speech, no need for a VSE at this time
FULL CODE
Anticipated Discharge: Within 24 hours
Subjective/Interval History
-
Date of Service: August 08, 2023
Patient was seen and examined. She is making some improvements in her functioning according to her dad, she denied any new significant symptoms or complaints.
Objective Data
-
Vital Signs:
Vital Signs
Temp Pulse Resp BP Pulse Ox
98.3 F 82 18 91/53 96
08/08/23 11:00 08/08/23 11:00 08/08/23 11:00 08/08/23 11:00 08/08/23 11:00
I&O
08/07/23 08/08/23 08/09/23
06:59 06:59 06:59
Intake Total 680 / 680 840 / 840
Balance 680 / 680 840 / 840
[2023-08-08 15:50] VITALS: BP 97/60
[2023-08-08] MEDS: LOVENOX 40 MG SC (17:42)
[2023-08-08] MEDS: ABILIFY 2 MG PO (17:42)
[2023-08-08 19:25] VITALS: BP 91/54
[2023-08-08 23:54] VITALS: BP 100/64
[2023-08-09 03:27] VITALS: BP 87/53
[2023-08-09] MEDS: SYNTHROID 75 MCG PO (05:15)
[2023-08-09 07:50] VITALS: BP 95/56
[2023-08-09] MEDS: COLACE PO ×2 (08:54→20:20)
[2023-08-09] MEDS: SENOKOT PO ×2 (08:54→20:20)
[2023-08-09] MEDS: VIMPAT 100 MG PO ×2 (09:08→20:20)
[2023-08-09] MEDS: BUSPAR 10 MG PO ×2 (09:08→20:20)
[2023-08-09 11:10] VITALS: BP 87/62
--- NOTE | 2023-08-09 12:00 | PTCARENOTE ---
pt pleasant and cheerful with patients at bedside around the clock. pt on IDDSI-6 diet with good appetite. pt parents refused stool softeners this AM due to large frequent stools for patient over last three days. pt with MASD to butt crack. calazine
and moisture barrier applied to site. pt with b/l heels on pillow and is a x1 assist to the chair. PT/OT working with patient to try and get back to baseline function
--- NOTE | 2023-08-09 15:52 | CM ---
Reviewed the chart notes and spoke with the patient and her mother at the bedside. Clinicals were faxed to [facility] for review. Patient was declined. Mother, RN and attending updated. Patient will discharge to home with
VN/PT/OT/ST. continues to be available to patient/family and is monitoring medical plan for needs at discharge.
Plan: Discharge to home with VN services.
[2023-08-09] MEDS: ABILIFY 2 MG PO (16:14)
--- NOTE | 2023-08-09 16:26 | PTOTSP ---
Speech Language Pathology
Pt seen for dysphagia tx. Mother present at bedside. Mother reported no difficulty with current diet with request for upgrade back to baseline diet of regular solids at discharge. Plan is for discharge home this date. No difficulty with cracker
on last session, but father was most comfortable keeping her on softer diet starting out on P.O. diet. WBC 5.2. Seen with med pass with meds crushed in puree followed by liquid. No oral or overt pharyngeal difficulty. Mother inquiring about
possibility of paying for extra caregivers. CM notified and will provide a list.
Recommend:
(1) Upgrade to regular solids/thin liquids
(2) Aspiration precautions: slow rate, small bites
(3) Meds crushed in puree
(4) RANGE MANAGER to sign off. Please reconsult as indicated
[2023-08-09 16:45] VITALS: BP 80/49
[2023-08-09] MEDS: LOVENOX SC (16:45)
--- NOTE | 2023-08-09 17:28 | W.PN.HOSP.TC ---
Today's Communication/Plan
-
Persistent Hypotension with SBP down to 80, patient asymptomatic
Attempting to reach patient's set off press operator to gather more information prior to discharge
Assessment / Plan
Assessment / Plan
Physical Exam
General: No Apparent Distress and Other (awake, alert, down syndrome, soft voice)
HEENT: Normocephalic
Respiratory: Clear to Auscultation Bilaterally
Cardiac: Regular Rhythm and S1/S2
GI: Soft and Nontender
Musculoskeletal: No Edema
Skin: Warm and Dry; Negative Rash
Neuro: Awake, Alert and Other (answers intermittent questions)
Psych: Calm
Assessment/Plan
Ms. Gabriela Small is a 28 yo woman with hx Down Syndrome, pseudoseizures, Tetralogy of Fallot s/p repair, AL in remission who presents to the ER with increased frequency seizures at home. Witnessed seizure in the ER.
In the ER patient was given IV Lorazepam and Vimpat
BRAIN MRI
IMPRESSION:
1. 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
2. Moderate to severe white matter disease in the frontal and parietal lobes.
3. Moderate diffuse dilatation of the ventricular system.
4. Mild diffuse cerebral and cerebellar volume loss.
Seizure
-s/p MRI with results above, likely all related to Down Syndrome
-appreciate neurology
-seizure precautions
-Switched lacosamide 100 mg every 12 hours IV to 100 mg lacosamide p.o. every 12 hours --> appreciate neurology
-Appreciate neurology
-Stopped evening Clonazepam (was only started Saturday evening)
-Acceptable to continue Ariprazole and Buspiron, as per neurology -- but taper these medications as per psychiatry
-Appreciate neurology consult
-PT/OT/ST
-EEG unremarkable
-Encourage PO intake, ambulation and more activity
-Outpatient neurology follow up with our office 4 weeks after discharge
Hypotension
-post ativan/sedation
responded to fluids
-now with softer blood pressures again
-hold Lisinopril - consider holding at DC with persistent soft BP
-Patient's set off press operator is Dr. Jorgito Singer: phone numbers are [phone] (office number) and [phone] (cell phone)
-Called patient's cardiology on-call team at [phone] to speak with [facility] on-call set off press operator as currently for above numbers out of office hours
History of Pseudoseizures
Down Syndrome
Tetralogy of Fallot s/p Repair
Anxiety
-VOICE PROFESSOR Aripiprazole, Buspirone
Essential Hypertension
-hold VOICE PROFESSOR Lisinopril
Hypothyroidism - continue VOICE PROFESSOR synthroid -- consider inpatient vs. outpatient check of TSH and Free T4 since patient is taking estrogen derivatives which may diminish the therapeutic effect of Thyroid Products
Constipation
-colace, senna BID; PRN oral dulcolax. miralax when can drink. avoid rectal administration, too difficult per patient
DVT PPx lovenox subQ
Diet: IDDSI Level 6 (Soft/Bite-Sized) and Thin liquids -- after discussion on 08/05/23 with Speech, no need for a VSE at this time
FULL CODE
Anticipated Discharge: 24 - 48 hours
Subjective/Interval History
-
Date of Service: August 09, 2023
Patient was seen and examined. She was doing fine and well, as per her and her father.
Objective Data
-
Vital Signs:
Vital Signs
Temp Pulse Resp BP Pulse Ox
98.7 F 90 18 80/49 97
08/09/23 16:45 08/09/23 16:45 08/09/23 16:45 08/09/23 16:45 08/09/23 16:45
I&O
08/08/23 08/09/23 08/10/23
06:59 06:59 06:59
Intake Total 840 / 840 120 / 120
Balance 840 / 840 120 / 120
[2023-08-09 19:51] VITALS: BP 88/53
[2023-08-09 23:14] VITALS: BP 80/41
[2023-08-10 00:34] VITALS: BP 86/44
[2023-08-10 03:29] VITALS: BP 92/53
[2023-08-10 06:00] VITALS: BMI 23.4
[2023-08-10] MEDS: SYNTHROID 75 MCG PO (06:14)
[2023-08-10 07:45] VITALS: BP 91/56; BP 95/52; BP 96/58; PULSE 111; PULSE 95
[2023-08-10] MEDS: SENOKOT PO (08:43)
[2023-08-10] MEDS: COLACE PO (08:43)
[2023-08-10] MEDS: VIMPAT 100 MG PO (08:43)
[2023-08-10] MEDS: BUSPAR 10 MG PO (08:43)
[2023-08-10 08:50] LABS: % Basophils 0.8 % (0-2); % Eosinophils 3.9 % (0-6); % Immature Granulocytes 0.3 % (0-0.5); % Lymphocytes 14.7 % (20.5-51.1); % Monocytes 4.1 % (1.7-9.3); % Neutrophils 76.2 % (42.2-75.2); Absolute Basophils 0.1 10^3/uL (0-0.2); Absolute Eosinophils 0.3 10^3/uL (0-0.7); Absolute Lymphocytes 0.9 10^3/uL (1.2-3.4); Absolute Monocytes 0.3 10^3/uL (0.1-0.6); Absolute Neutrophils 4.9 10^3/uL (1.4-6.5); Hemoglobin 14.5 g/dL (12.0-16.0); Mean Corp Hgb Conc. 33.7 g/dL (33.0-37.0); Mean Corpuscular Hgb 31.3 pg (27.0-31.0); Mean Corpuscular Volume 92.9 fL (81.0-99.0); Mean Platelet Volume 12.4 fL (7.4-10.4); Nucleated Red Blood Cells % 0 %; Platelet Count 246 10^3/uL (130-400); Red Blood Cell Count 4.63 10^6/uL (4.20-5.40); Red Cell Dist. Width 12.9 % (11.5-14.5); White Blood Cell Count 6.4 10^3/uL (4.8-10.8)
[2023-08-10 09:02] LABS: ALT (SGPT) 161 U/L (0-35); AST (SGOT) 112 U/L (14-36); Albumin 4.4 g/dl (3.5-5.0); Alkaline Phosphatase 81 U/L (38-126); Blood Urea Nitrogen 21 mg/dl (7-17); Calcium 10.1 mg/dl (8.4-10.2); Carbon Dioxide 24 mmol/L (22-30); Chloride 104 mmol/L (98-107); Estimated Creatinine Clearance 68 ml/min; Glucose 138 mg/dl (70-99); Magnesium 2.2 mg/dl (1.6-2.3); Potassium 4.5 mmol/L (3.5-5.1); Sodium 141 mmol/L (135-145); Total Bilirubin 0.5 mg/dl (0.2-1.3); Total Protein 7.9 g/dl (6.3-8.2); eGFR > 60.00
[2023-08-10 09:42] LABS: TSH Reflex To Free T4 1.16 uIU/ml (0.47-4.68)
--- NOTE | 2023-08-10 11:26 | W.PN.HOSP.TC ---
Today's Communication/Plan
-
Discharge today
Assessment / Plan
Assessment / Plan
Physical Exam
General: No Apparent Distress and Other (awake, alert, down syndrome, soft voice)
HEENT: Normocephalic
Respiratory: Clear to Auscultation Bilaterally
Cardiac: Regular Rhythm and S1/S2
GI: Soft and Nontender. Positive bowel sounds.
Musculoskeletal: No Edema
Skin: Warm and Dry; Negative Rash
Neuro: Awake, Alert and Other (answers intermittent questions)
Psych: Calm
Assessment/Plan
Ms. Gabriela Small is a 28 yo woman with hx Down Syndrome, pseudoseizures, Tetralogy of Fallot s/p repair, AL in remission who presents to the ER with increased frequency seizures at home. Witnessed seizure in the ER.
In the ER patient was given IV Lorazepam and Vimpat
BRAIN MRI
IMPRESSION:
1. 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
2. Moderate to severe white matter disease in the frontal and parietal lobes.
3. Moderate diffuse dilatation of the ventricular system.
4. Mild diffuse cerebral and cerebellar volume loss.
Seizure
-s/p MRI with results above, likely all related to Down Syndrome
-appreciate neurology
-seizure precautions
-Switched lacosamide 100 mg every 12 hours IV to 100 mg lacosamide p.o. every 12 hours --> appreciate neurology
-Appreciate neurology
-Stopped evening Clonazepam
-Minimize sedating medications
-Acceptable to continue Ariprazole 2 mg daily and Buspiron 10 mg BID, as per neurology and psychiatry
-Appreciate neurology consult
-PT/OT/ST
-EEG unremarkable
-Encourage PO intake, ambulation and more activity
-Outpatient neurology follow up with our office 4 weeks after discharge
-Follow-up with outpatient psychiatry
Chronic Hypotension - Asymptomatic
-post ativan/sedation
responded to fluids
-now with softer blood pressures again
-hold Lisinopril
-Patient's chief medical technologist is Dr. Jorgito Singer: phone numbers are [phone] (office number) and [phone] (cell phone)
-Called patient's cardiology on-call team at [facility] at [phone] and spoke with on-call cardiology team -- recommendation was okay to discharge as long as not symptomatic, check TSH (came back okay) and follow-up
outpatient
History of Pseudoseizures
Down Syndrome
Tetralogy of Fallot s/p Repair
Anxiety
-MACHINE SET UP OPERATOR PAPER GOODS Aripiprazole, Buspirone
Essential Hypertension
-hold MACHINE SET UP OPERATOR PAPER GOODS Lisinopril
Hypothyroidism - continue MACHINE SET UP OPERATOR PAPER GOODS synthroid -- check outpatient check of TSH and Free T4 since patient is taking estrogen derivatives which may diminish the therapeutic effect of Thyroid Products
Constipation
-colace, senna BID; PRN oral dulcolax. miralax when can drink. avoid rectal administration, too difficult per patient
DVT PPx lovenox subQ
Diet: IDDSI Level 6 (Soft/Bite-Sized) and Thin liquids -- after discussion on 08/05/23 with Speech, no need for a VSE at this time
FULL CODE
More than 30 minutes spent in discharge including
Final examination of the patient
Summarizing hospital stay
Instructions for continuing care to all relevant caregivers
Preparation of discharge records, prescriptions, and referral forms
Total time spent (in minutes): 38
Anticipated Discharge: Today
Subjective/Interval History
-
Date of Service: August 10, 2023
Patient was seen and examined. She denied any dizziness or any other symptoms/complaints.
Objective Data
-
Labs:
Laboratory Results
08/10/23
08:20
WBC 6.4
Hgb 14.5
Hct 43.0
Plt Count 246 D
Sodium 141
Potassium 4.5
Chloride 104
Carbon Dioxide 24
BUN 21 H
Creatinine 0.8
Glucose 138 H
Calcium 10.1
Total Bilirubin 0.5
AST 112 H
ALT 161 H
Alkaline Phosphatase 81
Vital Signs:
Vital Signs
Temp Pulse Resp BP Pulse Ox
98.5 F 114 12 96/58 96
08/10/23 07:45 08/10/23 07:45 08/10/23 07:45 08/10/23 07:45 08/10/23 09:59
I&O
08/09/23 08/10/23 08/11/23
06:59 06:59 06:59
Intake Total 120 / 120 600 / 600
Balance 120 / 120 600 / 600
[2023-08-10 11:35] VITALS: BP 95/66
--- NOTE | 2023-08-10 13:02 | W.DS.TRANS ---
DC Summary - Stick Puller
-
Discharge Instructions:
Discharge Diagnosis/Procedures Seizure
Chronic Hypotension - Asymptomatic
History of Pseudoseizures
Down Syndrome
Tetralogy of Fallot status post Repair
Anxiety
Essential Hypertension
Hypothyroidism
Constipation
BRAIN MRI (as per radiologist's report)
IMPRESSION:
1. MILD to MODERATE BILATERAL PERIVENTRICULAR
LEUKOMALACIA in the centrum semiovale of both
parietal lobes superior to the lateral
ventricles.
2. Moderate to severe white matter disease in
the frontal and parietal lobes.
3. Moderate diffuse dilatation of the
ventricular system.
4. Mild diffuse cerebral and cerebellar volume
loss.
Diet Other diet
Additional Diets Regular solids/thin liquids
Aspiration precautions: slow rate, small bites
Medications crushed in puree
Blood Work Check CBC, CMP and Magnesium with your
outpatient physician in 2 to 3 days.
Instructions: Lacosamide
Seizures
Stand-Alone Forms:
Changes to Home Medications: Yes
Discharge Medications:
DC Medications w/original date entered in [employer]
L.acidophilus,rhamnosus-B.breve-S.thermophilus 3 billion cell chew tab 1 tab PO NOON 08/02/23
estradiol 0.05 mg-norethindrone 0.14 mg/24 hr semiwkly transderm patch (CombiPatch) 1 patch transdermal TUFR 08/02/23
levothyroxine 75 mcg tablet 75 mcg PO DAILY 08/02/23
lisinopril 10 mg tablet 10 mg PO QPM 08/02/23
pediatric multivitamin no.49 (Flintstones Gummies chewable tablet) 1 tab PO BID@1200,1700 08/02/23
aripiprazole 2 mg tablet 2 mg PO DAILY@1600 #30 tabs 08/10/23
buspirone 10 mg tablet 10 mg PO BID #60 tabs 08/10/23
lacosamide 100 mg tablet 100 mg PO BID #60 tabs 08/10/23
polyethylene glycol 3350 17 gram oral powder packet (HealthyLax) 17 g PO DAILYPRN PRN constipation #30 ea 08/10/23
sennosides 8.6 mg tablet (Senna Laxative) 8.6 mg PO BID #60 tabs 08/10/23
Home Medication Changes
Lacosamide, HealthyLax and Senna Laxative are new medications.
Aripiprazole has been changed from 4 mg daily to 2 mg daily.
Buspirone has been changed from 15 mg BID to 10 mg BID.
Clonazepam has been stopped.
Tylenol stopped.
Pending Results: No
Total time spent discharging patient (in min): 38
--- NOTE | 2023-08-10 14:50 | PTCARENOTE ---
Patient discharged home with VN. This RN removed patient's IV and telemetry pack, patient assisted into chair and dressed into home clothes by this RN and tech. Discharge instructions reviewed with patient's parents by this RN, new seizure
medication lacosamide reviewed with parents as well as dose changes to previous home medications, parents verbalized understanding. Parents concerned about transporting patient to get outpatient labs drawn in 2-3 days as per discharge instructions;
per case advocate, VN can draw labs at home pending insurance coverage, mobile lab can come to house for lab draw if not. VN to contact family on Saturday per case advocate, parents verbalized understanding of plan. Patient taken down to family's car at
[facility] via wheelchair, family refused need for staff escort.
--- NOTE | 2023-08-10 15:40 | CM ---
met with patient and her family at bedside.patient is stable for dc home.she needs blood work drawn by her pcp in 2-3 days but family not able to transport patient to pcp.i called [facility] and they will call insurance company to see if they will pay
for vn to draw blood work ,if not they will set up a mobile lab to draw blood.family to transport home.plan home with vn.
== END 2023-08-10 14:49 | disposition home health service (06) | DRG 101 ==
LOC: 2 NORTH 13:52
PROVIDERS: ADMITTING PHYSICIAN Student in an Organized Health Care Education/Training Program; ATTENDING PHYSICIAN Hospitalist; CONSULT PHYSICIAN Physical Medicine & Rehabilitation; CONSULT PHYSICIAN Student in an Organized Health Care Education/Training Program; EMERGENCY PHYSICIAN Emergency Medicine; FAMILY PHYSICIAN Family Medicine; OTHER PHYSICIAN Psychiatry & Neurology Psychiatry
DX: G40.109 Localization-related (focal) (partial) symptomatic epilepsy and epileptic syndromes with simple partial seizures, not intractable, without status epilepticus (principal); C91.01 Acute lymphoblastic leukemia, in remission; I10 Essential (primary) hypertension; E03.9 Hypothyroidism, unspecified; I95.89 Other hypotension; F41.9 Anxiety disorder, unspecified; K59.00 Constipation, unspecified; Q90.9 Down syndrome, unspecified; Z87.74 Personal history of (corrected) congenital malformations of heart and circulatory system; Z79.890 Hormone replacement therapy; Z79.899 Other long term (current) drug therapy
CPT/HCPCS: 70553; 80048; 80053; 82550; 83735; 84443; 85025; 85027; 92526; 92610; 93005; 95813; 97116; 97163; 97167; 97530; 97535; 99291; A9575; C9254